=== PATIENT | female | born 1985 | race Caucasian/White ===

== ENCOUNTER 2019-02-18 03:15 | Emergency (ER) | payer MEDICAID ==
[~2019-02-18] VITALS: Ht 167.6 cm; Wt 80.7 kg
[~2019-02-18 03:15] MED LIST: FLUO-125; METF-371
[2019-02-18] MEDS ORDERED: ACETAMINOPHEN 325 MG TAB PO ONE (03:45)
[2019-02-18 03:50] VITALS: BP 128/78
[2019-02-18 04:36] LABS: Urine Bacteria MOD /hpf (None Seen); Urine Blood Negative /uL (Negative); Urine Specific Gravity 1.022 (1.001-1.035); Urine WBC 89 /hpf (0 - 5)
[2019-02-18] MEDS ORDERED: IBUPROFEN 800 MG TAB PO ONE (05:00)
[2019-02-18] MEDS ORDERED: cefTRIAXone SOD 1,000 MG VL IM ONE (05:15)
== END 2019-02-18 06:45 | disposition home or self-care (01) ==
LOC: ER 03:18
DX: N39.0 Urinary tract infection, site not specified (principal); R50.9 Fever, unspecified; E11.9 Type 2 diabetes mellitus without complications; Z98.51 Tubal ligation status
CPT/HCPCS: 81001; 81025; 82962; 96372; 99283; J0696

== ENCOUNTER 2019-03-17 10:34 | Emergency (ER) | payer MEDICAID ==
[~2019-03-17] VITALS: Ht 167.6 cm; Wt 77.1 kg
[2019-03-17] MEDS ORDERED: HYDROcodone-ACET 10/325MG TAB PO ONE (11:00)
[2019-03-17 13:23] LABS: Urine Bacteria NONE SEEN /hpf (None Seen); Urine Blood Negative /uL (Negative); Urine Mucus FEW (None Seen); Urine Specific Gravity 1.026 (1.001-1.035); Urine WBC 52 /hpf (0 - 5); Urine WBC Clumps PRESENT /hpf (None Seen)
[2019-03-17 14:30] VITALS: BP 100/56
== END 2019-03-17 15:19 | disposition home or self-care (01) ==
LOC: ER 10:39
DX: M79.662 Pain in left lower leg (principal); N39.0 Urinary tract infection, site not specified; E11.9 Type 2 diabetes mellitus without complications; F17.210 Nicotine dependence, cigarettes, uncomplicated; Z79.84 Long term (current) use of oral hypoglycemic drugs; Z79.899 Other long term (current) drug therapy; Z98.51 Tubal ligation status
CPT/HCPCS: 81001; 82962; 93971

== ENCOUNTER 2023-01-11 14:26 | Emergency (ER) | payer MEDICAID ==
[~2023-01-11] VITALS: Ht 167.6 cm; Wt 85.0 kg
[2023-01-11] MEDS ORDERED: INSULIN LISPRO (HUMAN) 100 UNITS/ML ML SC ONE ×2 (15:00→16:15)
[2023-01-11 15:57] LABS: Basophils # (auto) 0.1 10 ^3/uL (0-0.2); Basophils % (auto) 0.7 % (0.0-2.0); Eosinophils # (auto) 0.2 10 ^3/uL (0-0.8); Eosinophils % (auto) 1.8 % (0.0-7.0); Hematocrit 38.8 % (36.0-46.0); Hemoglobin 13.2 g/dL (12.2-16.2); Lymphocytes # (auto) 2.3 10 ^3/uL (0.4-5.4); Lymphocytes % (auto) 25.8 % (10.0-50.0); Mean Corpuscular Hemoglobin 30.4 pg (28.0-32.0); Mean Corpuscular Hgb Conc. 34.1 g/dL (32.0-36.0); Mean Corpuscular Volume 89.1 fL (80.0-100.0); Monocytes # (auto) 0.4 10 ^3/uL (0-1.3); Monocytes % (auto) 4.1 % (0.0-12.0); Neutrophils # (auto) 5.9 10 ^3/uL (1.6-8.6); Neutrophils % (auto) 67.6 % (37.0-80.0); Nucleated Red Blood Cells % 0.1 %; Red Blood Cells 4.36 10^6/uL (4.0-5.20); Red Cell Distribution Width 13.1 % (11.8-14.3); White Blood Cell 8.8 10^3/uL (4.4-10.8)
[2023-01-11 16:02] LABS: Albumin 3.4 g/dL (3.4-5.0); BUN/Creatinine Ratio 10.9; Calcium 8.4 mg/dL (8.5-10.1); Potassium 4.3 mmol/L (3.5-5.1)
[2023-01-11 16:06] LABS: Bilirubin, Total 0.3 mg/dL (0.2-1.0); Total Protein 7.2 g/dL (6.4-8.2)
[2023-01-11 16:36] LABS: Urine Bacteria FEW /hpf (None Seen); Urine Blood Negative /uL (Negative); Urine Specific Gravity 1.034 (1.001-1.035); Urine WBC 12 /hpf (0 - 5)
[2023-01-11] MEDS ORDERED: BENZ100C19 PO (17:10)
[2023-01-11 18:24] VITALS: BP 97/64
== END 2023-01-11 18:25 | disposition home or self-care (01) ==
LOC: ER 14:26
DX: E11.65 Type 2 diabetes mellitus with hyperglycemia (principal); J06.9 Acute upper respiratory infection, unspecified; I95.9 Hypotension, unspecified; F17.210 Nicotine dependence, cigarettes, uncomplicated; I10 Essential (primary) hypertension; Z98.51 Tubal ligation status
CPT/HCPCS: 36415; 71046; 80053; 81001; 83880; 85025; 96372; 99284; J1815

== ENCOUNTER 2023-06-15 16:51 | Emergency (ER) | payer MEDICAID ==
[~2023-06-15] VITALS: Ht 167.6 cm; Wt 84.7 kg
[~2023-06-15 16:51] MED LIST changes: +BENZ100C19 PO
[2023-06-15] MEDS ORDERED: DexAMETHasone SOD PHOS 10MG/1ML VIAL INJ IM ONE (17:30)
[2023-06-15] MEDS ORDERED: HYDR-4924 PO (17:40)
[2023-06-15 18:18] VITALS: BP 97/64; PULSE 118; RESP 18; TEMP 97.8; O2SAT 96
== END 2023-06-15 18:33 | disposition home or self-care (01) ==
LOC: ER 16:51
DX: T78.40XA Allergy, unspecified, initial encounter (principal); F17.210 Nicotine dependence, cigarettes, uncomplicated; E11.9 Type 2 diabetes mellitus without complications; I10 Essential (primary) hypertension; Z98.51 Tubal ligation status; X58.XXXA Exposure to other specified factors, initial encounter
CPT/HCPCS: 96372; 99283; J1100

== ENCOUNTER 2023-11-11 08:02 | Inpatient (IN) | payer MEDICAID ==
[~2023-11-11] VITALS: Ht 167.6 cm; Wt 74.4 kg
[~2023-11-11 08:02] MED LIST changes: +HYDR-4924 PO
[2023-11-11] MEDS ORDERED: SODIUM CHLORIDE 0.9% 1,000 ML IV ONE (08:45)
[2023-11-11 09:14] LABS: Base Excess -13.2 mmol/L (-2.0-2.0)
[2023-11-11 09:17] LABS: Urine Bacteria None Seen /hpf (None Seen)
[2023-11-11 09:27] LABS: Basophils # (auto) 0.1 10 ^3/uL (0-0.2); Basophils % (auto) 0.6 % (0.0-2.0); Eosinophils # (auto) 0 10 ^3/uL (0-0.8); Eosinophils % (auto) 0.1 % (0.0-7.0); Hematocrit 44.4 % (36.0-46.0); Hemoglobin 14.1 g/dL (12.2-16.2); Lymphocytes # (auto) 1.1 10 ^3/uL (0.4-5.4); Lymphocytes % (auto) 9.1 % (10.0-50.0); Mean Corpuscular Hemoglobin 29.2 pg (28.0-32.0); Mean Corpuscular Hgb Conc. 31.8 g/dL (32.0-36.0); Monocytes # (auto) 0.1 10 ^3/uL (0-1.3); Monocytes % (auto) 0.9 % (0.0-12.0); Neutrophils # (auto) 10.3 10 ^3/uL (1.6-8.6); Neutrophils % (auto) 89.3 % (37.0-80.0); Nucleated Red Blood Cells % 0.1 %; Red Blood Cells 4.82 10^6/uL (4.0-5.20); Red Cell Distribution Width 13.6 % (11.8-14.3); White Blood Cell 11.5 10^3/uL (4.4-10.8)
[2023-11-11 09:31] LABS: Alanine Aminotransferase 25 U/L (7-40); Albumin 4.6 g/dL (3.2-4.8); Alkaline Phosphatase 128 U/L (46-116); Anion Gap 22 (5-15); Aspartate Aminotransferase 19 U/L (13-40); BUN/Creatinine Ratio 14.2 (10.0-20.0); Bilirubin, Total 0.5 mg/dL (0.2-1.0); Blood Urea Nitrogen 23 mg/dL (9-23); Calcium 9.9 mg/dL (8.7-10.4); Carbon Dioxide 15 mmol/L (20-30); Chloride 96 mmol/L (98-107); Potassium 5.1 mmol/L (3.5-5.1); Sodium 133 mmol/L (136-145); Total Protein 7.2 g/dL (5.7-8.2)
[2023-11-11 09:36] LABS: Glucose 672 mg/dL (74-106)
[2023-11-11] MEDS ORDERED: INSULIN LANTUS (GLARGINE) 1 /0.01ml (100units/ml) SC ONE (11:15)
[2023-11-11] MEDS ORDERED: ONDANSETRON HCL 4 MG/2 ML VIAL IV ONE (11:15)
[2023-11-11] MEDS ORDERED: POTASSIUM CHL 20MEQ/100ML 200 ML IV PRN (11:15)
[2023-11-11] MEDS ORDERED: INSULIN DRIP 100 UNIT/100ML 100 ML IV SCH ×3 (11:15→22:45)
[2023-11-11] MEDS ORDERED: DEXTROSE (50%) 50ML SYRG IV PRN (11:15)
[2023-11-11] MEDS ORDERED: MORPHINE SULFATE INJ 2 MG/ml SYRG IV PRN (11:30)
[2023-11-11] MEDS ORDERED: ACETAMINOPHEN 325 MG TAB PO PRN (11:30)
[2023-11-11] MEDS ORDERED: DOCUSATE SOD 100 MG CAP PO PRN (11:30)
[2023-11-11] MEDS ORDERED: NITROGLYCERIN 0.4 MG SL TAB SL PRN (11:30)
[2023-11-11 11:32] LABS: Magnesium 1.9 mg/dL (1.6-2.6)
[2023-11-11 11:34] LABS: Phosphorus 4.8 mg/dL (2.4-5.1)
[2023-11-11] MEDS ORDERED: LEVO-177 PO (11:35)
[2023-11-11] MEDS ORDERED: FLUO10TA18 PO (11:35)
[2023-11-11] MEDS ORDERED: LAMO100T44 PO (11:35)
[2023-11-11] MEDS ORDERED: MIDO5TAB22 PO (11:35)
[2023-11-11] MEDS ORDERED: FERR325T20 PO (11:35)
[2023-11-11] MEDS ORDERED: ATOR40TA52 PO (11:35)
[2023-11-11 11:55] LABS: Chloride 99 mmol/L (98-107); Potassium 4.9 mmol/L (3.5-5.1); Sodium 134 mmol/L (136-145)
[2023-11-11 11:56] LABS: Anion Gap 23 (5-15); Calcium 9.5 mg/dL (8.5-10.1); Carbon Dioxide 12 mmol/L (20-30)
[2023-11-11 12:01] LABS: BUN/Creatinine Ratio 10.5 (10.0-20.0); Blood Urea Nitrogen 18 mg/dL (9-23)
[2023-11-11 12:12] LABS: Glucose 656 mg/dL (74-106)
[2023-11-11 14:10] VITALS: PULSE 106; RESP 20; O2SAT 97
[2023-11-11] MEDS: SODIUM CHLORIDE 0.9% 1,000 ML IV SCH ×4 (14:22→23:54)
[2023-11-11] MEDS: ACCU-CHEK COMFORT CURVE STRIP VI SCH ×7 (14:23→22:34)
[2023-11-11] MEDS: MIDODRINE HCL 10 MG TAB PO SCH ×2 (14:46→22:12)
[2023-11-11 15:15] LABS: Urine Blood 3+ /uL (Negative); Urine Clarity CLEAR (Clear); Urine Color Pink (Yellow); Urine Protein, UAD 1+ (Negative); Urine Specific Gravity 1.022 (1.001-1.035); Urine Urobilinogen Normal (Negative); Urine pH 5.5 (5.0-8.0)
[2023-11-11] MEDS ORDERED: SODIUM CHLORIDE 0.9% 1,000 ML IV SCH (15:15)
[2023-11-11 15:16] LABS: Urine WBC 115 /hpf (0 - 5)
[2023-11-11] MEDS: FERROUS SULFATE 325mg EC TAB PO SCH (17:39)
[2023-11-11 17:50] LABS: Potassium 4.8 mmol/L (3.5-5.1); Sodium 142 mmol/L (136-145)
[2023-11-11 17:51] LABS: Anion Gap 18 (5-15); Calcium 8.5 mg/dL (8.5-10.1); Carbon Dioxide 13 mmol/L (20-30)
[2023-11-11 17:56] LABS: Blood Urea Nitrogen 21 mg/dL (9-23); Glucose 354 mg/dL (74-106)
[2023-11-11 18:22] LABS: Chloride 111 mmol/L (98-107)
[2023-11-11] MEDS ORDERED: PANTOPRAZOLE 40 MG/10 ML VIAL INJ IV ONE (19:15)
[2023-11-11 19:19] VITALS: PULSE 119; RESP 17; O2SAT 95
[2023-11-11] MEDS: HYDROcodone-ACET 5/325MG TAB PO PRN (22:15)
[2023-11-11] MEDS ORDERED: D5W/SOD CHL 0.45% 1,000 ML IV SCH (23:00)
[2023-11-11] MEDS: ONDANSETRON HCL 4 MG/2 ML VIAL IV PRN (23:17)
[2023-11-11 23:32] LABS: Chloride 113 mmol/L (98-107); Potassium 4.3 mmol/L (3.5-5.1); Sodium 144 mmol/L (136-145)
[2023-11-11 23:33] LABS: Calcium 8.3 mg/dL (8.7-10.4)
[2023-11-11 23:38] LABS: Blood Urea Nitrogen 15 mg/dL (9-23); Glucose 115 mg/dL (74-106)
[2023-11-11 23:39] LABS: Anion Gap 14 (5-15); Carbon Dioxide 17 mmol/L (20-30)
[2023-11-12] MEDS: ACCU-CHEK COMFORT CURVE STRIP VI SCH ×14 (00:04→22:28)
[2023-11-12] MEDS ORDERED: INSULIN LANTUS (GLARGINE) 1 /0.01ml (100units/ml) SC ONE ×2 (01:15→23:15)
[2023-11-12] MEDS: HYDROcodone-ACET 5/325MG TAB PO PRN ×2 (02:38→22:40)
[2023-11-12] MEDS ORDERED: DEXTROSE (50%) 50ML SYRG IV PRN ×2 (03:15→07:15)
[2023-11-12] MEDS: ONDANSETRON HCL 4 MG/2 ML VIAL IV PRN (05:18)
[2023-11-12] MEDS: MIDODRINE HCL 10 MG TAB PO SCH ×3 (06:02→22:39)
[2023-11-12] MEDS: SODIUM CHLORIDE 0.9% 1,000 ML IV SCH ×3 (06:04→20:33)
[2023-11-12] MEDS: LEVOTHYROXINE SODIUM 88 MCG TAB PO SCH (06:39)
[2023-11-12 06:48] LABS: Basophils # (auto) 0 10 ^3/uL (0-0.2); Basophils % (auto) 0.1 % (0.0-2.0); Eosinophils # (auto) 0 10 ^3/uL (0-0.8); Hemoglobin 12.3 g/dL (12.2-16.2); Lymphocytes # (auto) 1.2 10 ^3/uL (0.4-5.4); Lymphocytes % (auto) 6.8 % (10.0-50.0); Mean Corpuscular Hemoglobin 29.2 pg (28.0-32.0); Mean Corpuscular Hgb Conc. 32.3 g/dL (32.0-36.0); Mean Corpuscular Volume 90.3 fL (80.0-100.0); Monocytes # (auto) 0.5 10 ^3/uL (0-1.3); Monocytes % (auto) 2.9 % (0.0-12.0); Neutrophils # (auto) 15.9 10 ^3/uL (1.6-8.6); Neutrophils % (auto) 90.2 % (37.0-80.0); Red Blood Cells 4.21 10^6/uL (4.0-5.20); Red Cell Distribution Width 13.5 % (11.8-14.3); White Blood Cell 17.6 10^3/uL (4.4-10.8)
[2023-11-12 06:50] LABS: Alanine Aminotransferase 15 U/L (7-40); Albumin 3.8 g/dL (3.2-4.8); Alkaline Phosphatase 93 U/L (46-116); Anion Gap 18 (5-15); Aspartate Aminotransferase 10 U/L (13-40); Blood Urea Nitrogen 13 mg/dL (9-23); Calcium 8.2 mg/dL (8.7-10.4); Carbon Dioxide 14 mmol/L (20-30); Chloride 110 mmol/L (98-107); Glucose 240 mg/dL (74-106); Potassium 4.1 mmol/L (3.5-5.1); Sodium 142 mmol/L (136-145)
[2023-11-12 06:51] LABS: Bilirubin, Total 0.3 mg/dL (0.2-1.0); Total Protein 6.2 g/dL (5.7-8.2)
[2023-11-12] MEDS ORDERED: InsuLIN REG 1unit/0.01ml Soln (100units/ml) SC SCH ×2 (07:00→22:00)
[2023-11-12] MEDS ORDERED: ACCU-CHEK COMFORT CURVE STRIP VI SCH (07:00)
[2023-11-12] MEDS: INSULIN DRIP 100 UNIT/100ML 100 ML IV SCH ×2 (07:15→16:44)
[2023-11-12] MEDS: INSULIN LANTUS (GLARGINE) 1 /0.01ml (100units/ml) SC SCH ×2 (08:30→10:00)
[2023-11-12] MEDS ORDERED: INSULIN LANTUS (GLARGINE) 1 /0.01ml (100units/ml) SC SCH (10:00)
[2023-11-12] MEDS: cefTRIAXone 1GM/50ML D5W 50 ML IV SCH (10:04)
[2023-11-12] MEDS: FERROUS SULFATE 325mg EC TAB PO SCH ×2 (10:13→18:00)
[2023-11-12] MEDS: FLUoxetine HCL 10 MG CAP PO SCH (10:13)
[2023-11-12] MEDS: lamoTRIgine 100 MG TAB PO SCH (10:13)
[2023-11-12] MEDS: PANTOPRAZOLE 40 MG/10 ML VIAL INJ IV SCH (10:21)
[2023-11-12 19:00] VITALS: PULSE 107; RESP 17; TEMP 97.7; O2SAT 99
[2023-11-12] MEDS ORDERED: SODIUM CHLORIDE 0.9% 1,000 ML IV ONE (21:45)
[2023-11-12] MEDS ORDERED: ATORVASTATIN 20 MG TAB PO SCH (22:00)
[2023-11-12 22:05] LABS: Chloride 112 mmol/L (98-107); Potassium 3.4 mmol/L (3.5-5.1); Sodium 145 mmol/L (136-145)
[2023-11-12 22:06] LABS: Anion Gap 12 (5-15); Carbon Dioxide 21 mmol/L (20-30)
[2023-11-12 22:07] LABS: Calcium 8.8 mg/dL (8.7-10.4)
[2023-11-12 22:11] LABS: Glucose 162 mg/dL (74-106)
[2023-11-12 22:12] LABS: BUN/Creatinine Ratio 8.3 (10.0-20.0); Blood Urea Nitrogen 10 mg/dL (9-23)
[2023-11-12] MEDS: METOCLOPRAMIDE HCL 5MG/ml INJ 2ml VIAL IV PRN (22:40)
[2023-11-13] MEDS: ACCU-CHEK COMFORT CURVE STRIP VI SCH ×5 (00:26→12:00)
[2023-11-13] MEDS: SODIUM CHLORIDE 0.9% 1,000 ML IV SCH ×2 (03:41→10:04)
[2023-11-13] MEDS: InsuLIN REG 1unit/0.01ml Soln (100units/ml) SC SCH ×3 (04:20→12:00)
[2023-11-13] MEDS: METOCLOPRAMIDE HCL 5MG/ml INJ 2ml VIAL IV PRN (04:47)
[2023-11-13 05:54] LABS: Basophils # (auto) 0.1 10 ^3/uL (0-0.2); Basophils % (auto) 0.5 % (0.0-2.0); Eosinophils # (auto) 0 10 ^3/uL (0-0.8); Eosinophils % (auto) 0.1 % (0.0-7.0); Hematocrit 38.2 % (36.0-46.0); Hemoglobin 12.7 g/dL (12.2-16.2); Lymphocytes # (auto) 1.6 10 ^3/uL (0.4-5.4); Lymphocytes % (auto) 12.8 % (10.0-50.0); Mean Corpuscular Hemoglobin 29.7 pg (28.0-32.0); Mean Corpuscular Hgb Conc. 33.2 g/dL (32.0-36.0); Mean Corpuscular Volume 89.5 fL (80.0-100.0); Monocytes # (auto) 0.4 10 ^3/uL (0-1.3); Monocytes % (auto) 3.5 % (0.0-12.0); Neutrophils # (auto) 10.4 10 ^3/uL (1.6-8.6); Neutrophils % (auto) 83.1 % (37.0-80.0); Red Blood Cells 4.27 10^6/uL (4.0-5.20); Red Cell Distribution Width 13.9 % (11.8-14.3); White Blood Cell 12.5 10^3/uL (4.4-10.8)
[2023-11-13] MEDS: MIDODRINE HCL 10 MG TAB PO SCH (06:05)
[2023-11-13 06:08] LABS: Alanine Aminotransferase 15 U/L (7-40); Alkaline Phosphatase 95 U/L (46-116); Anion Gap 11 (5-15); BUN/Creatinine Ratio 6.6 (10.0-20.0); Blood Urea Nitrogen 8 mg/dL (9-23); Calcium 8.9 mg/dL (8.5-10.1); Carbon Dioxide 23 mmol/L (20-30); Chloride 113 mmol/L (98-107); Glucose 136 mg/dL (74-106); Potassium 3.3 mmol/L (3.5-5.1); Sodium 147 mmol/L (136-145)
[2023-11-13 06:09] LABS: Albumin 3.9 g/dL (3.2-4.8)
[2023-11-13 06:10] LABS: Aspartate Aminotransferase 13 U/L (13-40); Bilirubin, Total 0.3 mg/dL (0.2-1.0); Total Protein 6.4 g/dL (5.7-8.2)
[2023-11-13] MEDS: LEVOTHYROXINE SODIUM 88 MCG TAB PO SCH (07:19)
[2023-11-13 07:45] VITALS: PULSE 104; RESP 14; O2SAT 98
[2023-11-13] MEDS: FERROUS SULFATE 325mg EC TAB PO SCH (08:22)
[2023-11-13] MEDS: cefTRIAXone 1GM/50ML D5W 50 ML IV SCH (08:22)
[2023-11-13] MEDS ORDERED: MAGNESIUM SULFATE 1GM/100ML 100 ML IV ONE (09:15)
[2023-11-13] MEDS: POTASSIUM CHL 20MEQ/100ML 100 ML IV SCH ×2 (10:03→11:15)
[2023-11-13] MEDS: lamoTRIgine 100 MG TAB PO SCH (10:04)
[2023-11-13] MEDS: PANTOPRAZOLE 40 MG/10 ML VIAL INJ IV SCH (10:04)
[2023-11-13] MEDS: FLUoxetine HCL 10 MG CAP PO SCH (10:04)
[2023-11-13] MEDS: INSULIN LANTUS (GLARGINE) 1 /0.01ml (100units/ml) SC SCH (10:05)
[2023-11-13] MEDS ORDERED: INSLANTI SC (11:15)
[2023-11-13] MEDS ORDERED: INSU1INJ19 SC (11:21)
[2023-11-13] MEDS ORDERED: AMOX875T4 PO (11:28)
[2023-11-13] MEDS ORDERED: INSREGI SC (11:35)
[2023-11-13 11:39] VITALS: BP 123/78; PULSE 98; RESP 18; O2SAT 98
== END 2023-11-13 12:16 | disposition home or self-care (01) | DRG 720 ==
LOC: ER 08:02 → TELE 11:35 → UNDODEPER 11-13 11:53 → TELE 11-13 12:16
PROVIDERS: ADMIT Internal Medicine; ATTEND Emergency Medicine
DX: A41.9 Sepsis, unspecified organism (principal); N17.0 Acute kidney failure with tubular necrosis; E11.10 Type 2 diabetes mellitus with ketoacidosis without coma; I95.89 Other hypotension; E87.1 Hypo-osmolality and hyponatremia; D50.9 Iron deficiency anemia, unspecified; F17.210 Nicotine dependence, cigarettes, uncomplicated; D72.829 Elevated white blood cell count, unspecified; E78.5 Hyperlipidemia, unspecified; E86.0 Dehydration; E03.9 Hypothyroidism, unspecified; N39.0 Urinary tract infection, site not specified; F31.9 Bipolar disorder, unspecified; I10 Essential (primary) hypertension; Z79.899 Other long term (current) drug therapy
CPT/HCPCS: 36415; 36600; 71045; 76775; 80048; 80053; 81001; 82010; 82306; 82607; 82805; 82962; 83036; 83605; 83690; 83735; 83930; 83970; 84100; 84439; 84443; 84484; 84702; 85025; 87040; 87086; 87088; 87186; 96360; 99291; C9113; G0378; J1815; J2405; J3480

== ENCOUNTER 2025-01-14 10:08 | Emergency (ER) | payer MEDICAID ==
[~2025-01-14] VITALS: Ht 167.6 cm; Wt 68.0 kg
[~2025-01-14 10:08] MED LIST changes: +AMOX875T4 PO; +ATOR40TA52 PO; +FERR325T20 PO; +FLUO10TA18 PO; +INSREGI SC; +INSU1INJ19 SC; +LAMO100T44 PO; +LEVO-177 PO; +MIDO5TAB22 PO
--- NOTE | 2025-01-14 10:32 | ED.PDOC ---
History of Present Illness HPI Comments 39-year-old female who comes in with chief complaint of shortness a breath as well as cough and congestion. The patient states that the symptoms started a few days ago. The symptoms then worsened yesterday and she is also having some tingling of her skin. She denies any syncope or near-syncope. The patient denies any nausea, vomiting or diarrhea. She went to see her doctor today and upon arrival, the patient's systolic pressure was 70. An Accu-Chek EN route was 234. 911 was called and the patient was transported to our facility. The patient was given 500 cc of normal saline and the patient's blood pressure normalized. Upon arrival, the patient was sitting up and in no significant distress. She denies any others who are ill at the home. Time Seen by MD: 10:11 Primary Care Provider: UNKNOWN Reviewed Notes: Nurses Notes, Telecommunications Linesworker Notes, Medications, Allergies (No a llergies to medications) Allergies: Coded Allergies: NO KNOWN ALLERGIES (Unverified , 04/15/13) Home Meds Active Scripts Ciprofloxacin Hcl (Cipro) 500 Mg Tab, 1 TAB PO BID, #14 TAB Prov:ISAAC BAILEY MD 01/14/25 Insulin Regular (Human) (Novolin R) 100 Unit/Ml Inj, 100 UNITS SC IQ4HR for 30 Days, #1 INJ Prov:CHASE MALDONADO RESIDENT 11/13/23 Amoxicillin & Pot Clavulanate (Amoxicillin/Potassium Cla) 875 Mg Tab, 1 TAB PO BID for 7 Days, #14 TAB Prov:CHASE MALDONADO RESIDENT 11/13/23 Insulin Glargine (Basaglar Kwikpen) 100 Unit/Ml Inj, 40 UNIT SC HS for 30 Days, #1 INJ Prov:CHASE MALDONADO RESIDENT 11/13/23 Hydroxyzine HCl (Hydroxyzine Hydrochloride) 25 Mg Tab, 25 MG PO Q8HP PRN, #15 TAB Prov:RAKESH SÁNCHEZ PAC 06/15/23 Benzonatate (Tessalon Perles) 100 Mg Cap, 1 CAP PO TID, #21 CAP Prov:RAKESH SÁNCHEZ PAC 01/11/23 Reported Medications Ferrous Sulfate (Ferosul) 325 Mg Tab, PO 11/11/23 Midodrine HCl (Midodrine Hydrochloride) 5 Mg Tab, 1 TAB PO TID 11/11/23 Atorvastatin Calcium (ATORVASTATIN CALCIUM) 40 Mg Tab, 1 TAB PO DAILY 11/11/23 Lamotrigine (Lamotrigine) 100 Mg Tab, 1 TAB PO DAILY 11/11/23 Fluoxetine Hcl (Fluoxetine Hcl) 10 Mg Tab, 1 CAP PO DAILY 11/11/23 Levothyroxine Sodium (Levothyroxine Sodium) 88 Mcg Tab, 1 TAB PO DAILY 11/11/23 Metformin Hydrochloride (Metformin Hcl) 850 Mg Tab 04/15/13 Fluoxetine Hcl (Fluoxetine Hcl) 20 Mg Cap 04/15/13 Information Source: Patient, Emergency Med Personnel Mode of Arrival: EMS Severity: Moderate Timing: Days Duration: Since onset Prehospital treatment: Accucheck (234), 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, IVF, Other (Normal saline 500 cc bolus) Associated signs and symptoms No associated nausea, vomiting or diarrhea Past Medical History PAST MEDICAL HISTORY: Anemia, DM, High Lipids, HTN, Thyroid Past Medical History (Other): Low blood pressure, bipolar disorder Surgical History: BTL, NURSING DEPARTMENT CHAIRPERSON History: No Pertinent NURSING DEPARTMENT CHAIRPERSON History Family History Family History: Family hx of DM Social History Smoker: Cigarettes Alcohol: Occasionally Drugs: Denies Drug Use Lives In: Home Constitutional: reports: weakness; denies: chills, diaphoresis, fatigue, fever, malaise, sweats, others EENTM: reports: others (Congestion); denies: blurred vision, double vision, ear bleeding, ear discharge, ear drainage, ear pain, ear ringing, eye pain, eye redness, hearing loss, mouth pain, mouth swelling, nasal discharge, nose bleeding, nose congestion, nose pain, photophobia, tearing, throat pain, throat swelling, voice changes Respiratory: denies: cough, hemoptysis, orthopnea, SOB at rest, shortness of breath, SOB with excertion, stridor, wheezing, others Cardiovascular: denies: chest pain, dizzy spells, diaphoresis, Dyspnea on exertion, edema, irregular heart beat, left arm pain, lightheadedness, palpita tions, PND, syncope, others Gastrointestinal: denies: abdomen distended, abdominal pain, blood streaked victoria wels, constipated, diarrhea, dysphagia, difficulty swallowing, hematemesis, melena, nausea, poor appetite, poor fluid intake, rectal bleeding, rectal pain, vomiting, others Genitourinary: denies: abnormal vagina bleeding, burning, dyspareunia, dysuria, flank pain, frequency, hematuria, incontinence, pain, , vagina discharge, urgency, others Neurological: denies: dizziness, fainting, headache, left sided numbness, left sided weakness, numbness, paresthesia, pre-existing deficit, right sided numbness, right sided weakness, seizure, speech problems, tingling, tremors, weakness, others Musculoskeletal: denies: back pain, gout, joint pain, joint swelling, muscle pain, muscle stiffness, neck pain, others Integumetry: denies: bruises, change in color, change in hair/nails, dryness, laceration, lesions, lumps, rash, wounds, others Allergic/Immunocompromised: denies: Difficulty Healing, Frequent Infections, Hives, Itching, others Hematologic/Lymphatic: denies: anemia, blood clots, easy bleeding, easy bruis ing, swollen glands, others Endocrine: denies: excessive hunger, excessive sweating, excessive thirst, exc essive urination, flushing, intolerance to cold, intolerance to heat, unexplained weight gain, unexplained weight loss, others Psychiatric: denies: anxiety, bipolar disorder, depression, hopeless, panic disorder, schizophrenia, sleepless, suicidal, others Physical Exam General Appearance: No Apparent Distress HEENT: Normal ENT Inspection, Pharynx Normal, TMs Normal Neck: Full Range of Motion, Non-Tender, Normal, Normal Inspection Respiratory: Chest Non-Tender, Lungs Clear, No Accessory Muscle Use, No Respiratory Distress, Normal Breath Sounds Cardiovascular: No Edema, No JVD, No Murmur, No Gallop, Normal Peripheral P ulses, Regular Rate/Rhythm Breast Exam: Deferred Gastrointestinal: No Organomegaly, Non Tender, No Pulsatile Mass, Normal Bowel Sounds, Soft Genitalia: Deferred Pelvic: Deferred Rectal: Deferred Extremities: No calf tenderness, Normal capillary refill, Normal inspection, Normal range of motion, Non-tender, No pedal edema Musculoskeletal : Apperance: Normal Neurologic: Alert, 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 Was a procedure done?: No Differential Dx Considerations may include: Generalized weakness, influenza, COVID, dehydration, diabetes X-Ray, Labs, Meds, VS Vital Signs Date Time Temp Pulse Resp B/P (MAP) Pulse Ox O2 Delivery O2 Flow Rate FiO2 01/14/25 11:25 98.1 79 12 127/75 (92) 98 98.1 01/14/25 10:50 20 88/41 (57) 01/14/25 10:40 86 20 94 Room Air* 0 21 01/14/25 10:39 98.9 86 20 89/53 (65) 94 98.9 01/14/25 10:35 98.4 83 14 128/84 (99) 97 Lab Test 01/14/25 10:52 01/14/25 10:38 Range/Units Urine Color Light-orange Yellow Urine Clarity Ex.turbid Clear Urine pH 5.5 5.0-9.0 Urine Specific [place] 1.014 1.001-1.035 Urine Protein 1+ H Negative Urine Ketones Negative Negative Urine Blood 1+ H Negative /uL Urine Nitrite Negative Negative Urine Bilirubin Negative Negative Urine Urobilinogen Normal Negative mg/dL Urine Leukocyte Esterase 3+ Negative /uL Urine RBC 19 0 - 4 /hpf Urine WBC Clumps Present None Seen /hpf Urine Microscopic WBC 799 H 0-5 /HPF Urine Squamous Epithelial Cells Mod <5 /hpf Urine Bacteria Mod H None Seen /hpf Urine Hyaline Casts Mod 0 - 2 /lpf Urine Mucus Moderate None Seen Urine Yeast (Budding) Few None Seen /hpf Urine Glucose 4+ H Normal mg/dL White Blood Count 8.0 4.4-10.8 10^3/uL Red Blood Count 4.43 4.0-5.20 10^6/uL Hemoglobin 13.0 12.2-16.2 g/dL Hematocrit 38.9 36.0-46.0 % Mean Corpuscular Volume 87.9 80.0-100.0 fL Mean Corpuscular Hemoglobin 29.4 28.0-32.0 pg Mean Corpuscular Hemoglobin Concent 33.5 32.0-36.0 g/dL Red Cell Distribution Width 13.2 11.8-14.3 % Platelet Count 320 140-450 10^3/uL Mean Platelet Volume 9.4 6.9-10.8 fL Neutrophils (%) (Auto) 76.3 37.0-80.0 % Lymphocytes (%) (Auto) 16.1 10.0-50.0 % Monocytes (%) (Auto) 6.7 0.0-12.0 % Eosinophils (%) (Auto) 0.2 0.0-7.0 % Basophils (%) (Auto) 0.7 0.0-2.0 % Neutrophils # (Auto) 6.1 1.6-8.6 10 ^3/uL Lymphocytes # (Auto) 1.3 0.4-5.4 10 ^3/uL Monocytes # (Auto) 0.5 0-1.3 10 ^3/uL Eosinophils # (Auto) 0 0-0.8 10 ^3/uL Basophils # (Auto) 0.1 0-0.2 10 ^3/uL Nucleated Red Blood Cells 0.0 % Sodium Level 137 136-145 mmol/L Potassium Level 3.7 3.5-5.1 mmol/L Chloride Level 101 98-107 mmol/L Carbon Dioxide Level 30 20-31 mmol/L Anion Gap 6 5-15 Blood Urea Nitrogen 19 9-23 mg/dL Creatinine 1.37 H 0.550-1.02 mg/dL Glomerular Filtration Rate Calc 50 >90 mL/min BUN/Creatinine Ratio 13.9 10.0-20.0 Serum Glucose 259 H 74-106 mg/dL Calcium Level 9.0 8.7-10.4 mg/dL Influenza Type A Antigen Positive Negative Influenza Type B Antigen Negative Negative SARS-CoV-2 Antigen (Rapid) Negative NEGATIVE Current Medications Medications (Trade) Dose Ordered Sig/George Route Start Time Stop Time Status Last Admin Sodium Chloride 1,000 ml @ 1,000 mls/hr Q1H ONCE IV 01/14/25 11:00 01/14/25 11:59 DC 01/14/25 10:50 Ceftriaxone Sodium 50 ml @ 100 mls/hr ONCE ONCE IV 01/14/25 11:45 01/14/25 12:14 01/14/25 11:54 IV Hep-Lock was established The patient was given a 1 L bolus of normal saline The influenza a is positive The urine test is positive for UTI The chemistry panel is within normal limits The CBC is within normal limits The influenza B is negative The COVID test is negative The patient was given Rocephin 1 g IV piggyback At this time, the patient's vital signs are within normal limits The chest x-ray was negative The patient was being discharged and will follow up with the primary care doctor The patient will return to the emergency department's the condition worsens The patient was given a prescription of Cipro. Images Reviewed?: Images reviewed and evaluated by me Time of 1ST Reevaluation: 10:32 Reevaluation 1ST: Improved Time of 2ND Reevaluation: 12:06 Reevaluation 2ND: Improved Patient Education/Counseling: Diagnosis, Treatment, Prognosis, Need For Follow Up Family Education/Counseling: No Family Present Departure 1 Departure Time of Disposition: 12:06 Impression: Primary Impression: UTI (urinary tract infection) Qualified Codes: N30.01 - Acute cystitis with hematuria Additional Impression: Influenza A Disposition: HOME / SELF CARE / HOMELESS Condition: Fair e-Prescriptions Ciprofloxacin Hcl (Cipro) 500 Mg Tab 1 TAB PO BID, #14 TAB Prov: ISAAC BAILEY MD 01/14/25 Discharged With: Self Critical Care Note Critical Care Time?: No Stability Stability form required: No Heart Score Heart Score: Heart Score Response (Comments) Value History N/A 0 EKG N/A 0 Age N/A 0 Risk Factors N/A 0 Troponin N/A 0 Total 0 ISAAC BAILEY MD Jan 14, 2025 10:32
[2025-01-14 10:40] VITALS: PULSE 86; RESP 20; O2SAT 94
[2025-01-14] MEDS: SODIUM CHLORIDE 0.9% 1,000 ML IV ONE (10:50)
[2025-01-14 10:59] LABS: Basophils # (auto) 0.1 10 ^3/uL (0-0.2); Basophils % (auto) 0.7 % (0.0-2.0); Eosinophils # (auto) 0 10 ^3/uL (0-0.8); Eosinophils % (auto) 0.2 % (0.0-7.0); Hematocrit 38.9 % (36.0-46.0); Lymphocytes # (auto) 1.3 10 ^3/uL (0.4-5.4); Lymphocytes % (auto) 16.1 % (10.0-50.0); Mean Corpuscular Hemoglobin 29.4 pg (28.0-32.0); Mean Corpuscular Hgb Conc. 33.5 g/dL (32.0-36.0); Mean Corpuscular Volume 87.9 fL (80.0-100.0); Monocytes # (auto) 0.5 10 ^3/uL (0-1.3); Monocytes % (auto) 6.7 % (0.0-12.0); Neutrophils # (auto) 6.1 10 ^3/uL (1.6-8.6); Neutrophils % (auto) 76.3 % (37.0-80.0); Platelet Count (auto) 320 10^3/uL (140-450); Red Blood Cells 4.43 10^6/uL (4.0-5.20); Red Cell Distribution Width 13.2 % (11.8-14.3)
[2025-01-14 11:07] LABS: Chloride 101 mmol/L (98-107); Potassium 3.7 mmol/L (3.5-5.1); Sodium 137 mmol/L (136-145)
[2025-01-14 11:08] LABS: Anion Gap 6 (5-15); Carbon Dioxide 30 mmol/L (20-31)
[2025-01-14 11:14] LABS: BUN/Creatinine Ratio 13.9 (10.0-20.0); Blood Urea Nitrogen 19 mg/dL (9-23)
[2025-01-14 11:19] LABS: COVID19 ANTIGEN SOFIA FIA NEGATIVE (NEGATIVE)
[2025-01-14 11:22] LABS: Rapid Influenza A Positive (Negative); Rapid Influenza B Negative (Negative)
[2025-01-14 11:24] LABS: Urine Bacteria MOD /hpf (None Seen); Urine Blood 1+ /uL (Negative); Urine Budding Yeast FEW /hpf (None Seen); Urine Clarity Ex.Turbid (Clear); Urine Color Light-Orange (Yellow); Urine Hyaline Cast MOD /lpf (0 - 2); Urine Mucus MODERATE (None Seen); Urine Protein, UAD 1+ (Negative); Urine Specific Gravity 1.014 (1.001-1.035); Urine Squamous Epithelial Cell MOD /hpf (<5); Urine Urobilinogen Normal (Negative); Urine WBC 799 /HPF (0-5); Urine WBC Clumps PRESENT /hpf (None Seen); Urine pH 5.5 (5.0-9.0)
[2025-01-14 11:25] VITALS: TEMP 98.1
[2025-01-14 11:30] LABS: Glucose 259 mg/dL (74-106)
[2025-01-14] MEDS ORDERED: CIPR-173 PO (11:32)
[2025-01-14] MEDS: cefTRIAXone 1GM/50ML D5W 50 ML IV ONE (11:54)
--- NOTE | 2025-01-14 12:00 | DVH ---
EXAM: XY CHEST PORTABLE Indication: sob Technique: Single frontal view of the chest was obtained Comparison: XY CHEST PORTABLE on DOS: 11/11/23 FINDINGS: Lines and Tubes: None Lungs: No focal consolidation. Pleura: No effusion. No pneumothorax. Cardiomediastinal contours: Unremarkable Bones: No acute osseous abnormality. IMPRESSION: No acute cardiopulmonary disease.
[2025-01-14 12:18] VITALS: BP 119/83; PULSE 77; RESP 12; O2SAT 99
== END 2025-01-14 12:30 | disposition home or self-care (01) ==
LOC: EDUNIT# 10:08 → EDBD 10:08 → ER 10:08
DX: J10.1 Influenza due to other identified influenza virus with other respiratory manifestations (principal); N39.0 Urinary tract infection, site not specified; E11.9 Type 2 diabetes mellitus without complications; I10 Essential (primary) hypertension; E78.5 Hyperlipidemia, unspecified; J45.909 Unspecified asthma, uncomplicated; F17.210 Nicotine dependence, cigarettes, uncomplicated; Z79.890 Hormone replacement therapy; Z79.899 Other long term (current) drug therapy; Z98.51 Tubal ligation status; Z20.822 Contact with and (suspected) exposure to COVID-19
CPT/HCPCS: 36415; 71045; 80048; 81001; 85025; 87426; 87804; 96361; 96365; 99284; J0696; J7030

== ENCOUNTER 2025-05-01 11:02 | Inpatient (IN) | payer MEDICAID ==
[~2025-05-01] VITALS: Ht 167.6 cm; Wt 81.9 kg
[~2025-05-01 11:02] MED LIST changes: +CIPR-173 PO
--- NOTE | 2025-05-01 11:19 | ED.PDOC ---
GI ASSESSMENT HPI Comments Alex HPI: Poor Historian. Past Medical History: Past Surgical History: 40y F who presents to the ED for chief complaint of nausea and vomiting. - pt states she had gone out with friends, on Sunday, 2 days prior for her birthday and states she had multiple drinks - pt states the following morning, she started to have nausea, vomiting, dizziness, lightheadedness and pressure in her head - pt states her vomiting was" all day and it started out red and turned clear" - pt states her diarrhea was brown in color throughout - pt has noted history of low blood pressure and states she takes unknown medication and in the ED, has noted stable vitals with noted BP of 95/66 in the ED with otherwise all other vitals in normal range - pt has history of DM with noted accu check of 254 in the ED - pt otherwise denies any other symptoms at this time Past Medical history: DM, hypotension, hyperthyroidism Past surgical history: 1x allergies: denies medications: insulin social history: denies tobacco use, endorses ETOH use, denies drug use REVIEW OF SYSTEMS: CONSTITUTIONAL: Denies acute: fever, diaphoresis, chills, HEAD: Denies acute: headache, photophobia Eyes: Denies acute: Double vision, vision loss, eye pain, eye discharge. EARS: Denies acute: tinnitus, hearing loss, ear discharge, ear pain, THROAT: Denies acute: sore throat, swelling, difficulty swallowing , pain with swallowing, change in voice. NECK: Denies acute: neck pain, neck swelling, stiff neck. HEART: Denies acute : chest pain, palpitations, LUNGS: Denies acute: SOB, wheezing, cough, hemoptysis ABDOMEN: Denies acute: abdominal pain, diarrhea, melena , hematemesis, hematochezia SKIN: Denies acute: rash, redness, lesions, itchiness. EXTREMITIES: Denies acute: calf pain, numbness, tingling, weakness, denies pain in extremity. Denies acute: Low back pain. Neuro: Denies acute: focal neurological deficit, motor or sensory focal neurological deficit, tremors, seizure like activity, confusion, , change in mental status, loss of bowel or bladder function, cauda equina like symptoms. : Denies acute: dysuria, hematuria, flank pain, increase in urinary frequency. PSYCH: Denies acute: hallucination, suicidal ideation, homicidal ideation. FEMALE: Denies acute: abnormal vaginal bleeding, foul odor, unusual discharge. PHYSICAL EXAM: General: ----mild----acute distress, awake and alert. Head: normocephalic, atraumatic. Neck: supple, trachea is midline, no swelling. Throat: Normal phonation. Eyes:, no erythema, no purulent discharge, no proptosis, no icterus. Heart: regular rate, regular rhythm, no significant murmur appreciated. Lungs: no apparent respiratory distress, Able to speak in full sentences. No wheezing, no rhonchi, no crackles. No stridors Clear to auscultation bilaterally. Abdomen: non tender to palpation, non distended, soft, no guarding, no rebound, + bowel sounds. Neuro: Awake, Alert, oriented to name, self, situation, follows commands GCS=15. Speech is normal. Skin: no petechia, no purpura, no cyanosis, non-pale, not jaundice. Lower extremities: --no - Pitting edema no deformity, no focal swelling, no calf TTP. Makes eye contact. moves all four extremities. Face: no apparent facial droop. Ambulating in the ED independently. No nuchal rigidity, Kernig's sign, Brudzinski's sign, no meningeal signs. ED COURSE: DISCLAIMER: This medical document was created using an electronic medical record system with voice recognition software and computerized dictation system. Although this document has been carefully reviewed, there might still be some phonetic and typographical errors. Occasional wrong-word or "sound-alike" substitutions may have occurred due to the inherent limitations of voice recognition software. These areas are purely typographical due to imperfections of the software programs and do not reflect any compromise in the patient's medical care. Please read the chart carefully and recognize, using context, where these substitutions have occurred. Time Seen by MD: 11:17 Primary Care Provider: UNKNOWN Reviewed Notes: Medications, Allergies Allergies: Coded Allergies: NO KNOWN ALLERGIES (Unverified , 04/15/13) Home Meds Active Scripts Nitrofurantoin Monohydrate Mac (Macrobid) 100 Mg Cap, 100 MG PO BID for 7 Days, #14 CAP Prov:YENNY SALEEM DO 05/01/25 Ciprofloxacin Hcl (Cipro) 500 Mg Tab, 1 TAB PO BID, #14 TAB Prov:ISAAC BAILEY MD 01/14/25 Insulin Regular (Human) (Novolin R) 100 Unit/Ml Inj, 100 UNITS SC IQ4HR for 30 Days, #1 INJ Prov:JOELCHASE RESIDENT 11/13/23 Amoxicillin & Pot Clavulanate (Amoxicillin/Potassium Cla) 875 Mg Tab, 1 TAB PO BID for 7 Days, #14 TAB Prov[facility] 11/13/23 Insulin Glargine (Basaglar Kwikpen) 100 Unit/Ml Inj, 40 UNIT SC HS for 30 Days, #1 INJ Prov[facility] 11/13/23 Hydroxyzine HCl (Hydroxyzine Hydrochloride) 25 Mg Tab, 25 MG PO Q8HP PRN, #15 TAB Prov:RAKESH SÁNCHEZ PAC 06/15/23 Benzonatate (Tessalon Perles) 100 Mg Cap, 1 CAP PO TID, #21 CAP Prov:RAKESH SÁNCHEZ PAC 01/11/23 Reported Medications Ferrous Sulfate (Ferosul) 325 Mg Tab, PO 11/11/23 Midodrine HCl (Midodrine Hydrochloride) 5 Mg Tab, 1 TAB PO TID 11/11/23 Atorvastatin Calcium (ATORVASTATIN CALCIUM) 40 Mg Tab, 1 TAB PO DAILY 11/11/23 Lamotrigine (Lamotrigine) 100 Mg Tab, 1 TAB PO DAILY 11/11/23 Fluoxetine Hcl (Fluoxetine Hcl) 10 Mg Tab, 1 CAP PO DAILY 11/11/23 Levothyroxine Sodium (Levothyroxine Sodium) 88 Mcg Tab, 1 TAB PO DAILY 11/11/23 Metformin Hydrochloride (Metformin Hcl) 850 Mg Tab 04/15/13 Fluoxetine Hcl (Fluoxetine Hcl) 20 Mg Cap 04/15/13 Information Source: Patient Mode of Arrival: Ambulatory Past Medical History PAST MEDICAL HISTORY: Anemia, DM, High Lipids, HTN, Thyroid Surgical History: BTL, AIRPORT MANAGER History: No Pertinent AIRPORT MANAGER History Family History Family History: Family hx of DM Social History Smoker: Cigarettes Alcohol: Occasionally Drugs: Denies Drug Use Lives In: Home Was a procedure done? Was a procedure done?: No X-Ray, Labs, Meds, VS Vital Signs Date Time Temp Pulse Resp B/P (MAP) Pulse Ox O2 Delivery O2 Flow Rate FiO2 05/01/25 15:27 98.1 90 14 92/64 (73) 97 98.1 05/01/25 13:11 92 16 115/76 (89) 95 05/01/25 12:32 97 19 95 Room Air 05/01/25 12:32 98.6 97 19 98/70 (79) 95 98.6 05/01/25 11:21 91 05/01/25 11:18 97.9 98 17 95/66 (76) 97 97.9 Lab Test 05/01/25 12:52 05/01/25 11:26 05/01/25 11:15 05/01/25 11:11 Range/Units Troponin I High Sensitivity < 3 L < 3 L </=34 ng/L White Blood Count 7.0 4.4-10.8 10^3/uL Red Blood Count 4.29 4.0-5.20 10^6/uL Hemoglobin 12.9 12.2-16.2 g/dL Hematocrit 38.2 36.0-46.0 % Mean Corpuscular Volume 89.0 80.0-100.0 fL Mean Corpuscular Hemoglobin 30.1 28.0-32.0 pg Mean Corpuscular Hemoglobin Concent 33.8 32.0-36.0 g/dL Red Cell Distribution Width 13.4 11.8-14.3 % Platelet Count 366 140-450 10^3/uL Mean Platelet Volume 8.8 6.9-10.8 fL Neutrophils (%) (Auto) 69.8 37.0-80.0 % Lymphocytes (%) (Auto) 24.4 10.0-50.0 % Monocytes (%) (Auto) 4.3 0.0-12.0 % Eosinophils (%) (Auto) 0.5 0.0-7.0 % Basophils (%) (Auto) 1.0 0.0-2.0 % Neutrophils # (Auto) 4.9 1.6-8.6 10 ^3/uL Lymphocytes # (Auto) 1.7 0.4-5.4 10 ^3/uL Monocytes # (Auto) 0.3 0-1.3 10 ^3/uL Eosinophils # (Auto) 0 0-0.8 10 ^3/uL Basophils # (Auto) 0.1 0-0.2 10 ^3/uL Nucleated Red Blood Cells 0.1 % Sodium Level 139 136-145 mmol/L Potassium Level 4.2 3.5-5.1 mmol/L Chloride Level 99 98-107 mmol/L Carbon Dioxide Level 30 20-31 mmol/L Anion Gap 10 5-15 Blood Urea Nitrogen 21 9-23 mg/dL Creatinine 1.16 H 0.550-1.02 mg/dL Glomerular Filtration Rate Calc 60 >90 mL/min BUN/Creatinine Ratio 18.1 10.0-20.0 Serum Glucose 305 H 74-106 mg/dL Lactic Acid Level 1.3 0.4-2.0 mmol/L Calcium Level 10.1 8.7-10.4 mg/dL Magnesium Level 1.9 1.6-2.6 mg/dL Total Bilirubin 0.5 0.2-1.0 mg/dL Aspartate Amino Transferase (AST) 15 <34 U/L Alanine Aminotransferase (ALT) 19 7-40 U/L Alkaline Phosphatase 99 46-116 U/L Total Protein 7.0 5.7-8.2 g/dL Albumin 4.3 3.2-4.8 g/dL Plasma/Serum Blood Alcohol 4.3 <10 mg/dL Urine Color Light-orange Yellow Urine Clarity Turbid H Clear Urine pH 5.0 5.0-9.0 Urine Specific [place] 1.027 1.001-1.035 Urine Protein Trace H Negative Urine Ketones 2+ H Negative Urine Blood 1+ H Negative /uL Urine Nitrite 2+ H Negative Urine Bilirubin Negative Negative Urine Urobilinogen Normal Negative mg/dL Urine Leukocyte Esterase 3+ Negative /uL Urine RBC 9 0 - 4 /hpf Urine Microscopic WBC 198 H 0-5 /HPF Urine Squamous Epithelial Cells Mod <5 /hpf Urine Bacteria Many H None Seen /hpf Urine Mucus Few None Seen Urine Glucose 4+ H Normal mg/dL Urine Opiates Screen Neg NEGATIVE Urine Fentanyl Screen Neg NEGATIVE Urine Barbiturates Screen Neg NEGATIVE Urine Phencyclidine Screen Neg NEGATIVE Urine Amphetamines Screen Neg NEGATIVE Urine Benzodiazepines Screen Neg NEGATIVE Urine Cocaine Screen Neg NEGATIVE Urine Cannabinoids Screen Neg NEGATIVE POC Glucose 254 H 70-106 mg/dl Current Medications Medications (Trade) Dose Ordered Sig/George Route Start Time Stop Time Status Last Admin Sodium Chloride 1,000 ml @ 1,000 mls/hr Q1H ONCE IV 05/01/25 11:30 05/01/25 12:29 DC 05/01/25 12:31 Ondansetron HCl (Zofran) 8 mg ONCE ONCE IV 05/01/25 11:30 05/01/25 11:31 DC 05/01/25 12:28 Pantoprazole Sodium (Protonix) 40 mg ONCE ONCE IV 05/01/25 11:30 05/01/25 11:31 DC 05/01/25 12:28 Ceftriaxone Sodium 50 ml @ 100 mls/hr ONCE ONCE IV 05/01/25 13:00 05/01/25 13:29 DC 05/01/25 12:55 Sodium Chloride 1,000 ml @ 1,000 mls/hr Q1H ONCE IV 05/01/25 15:45 05/01/25 16:44 05/01/25 15:46 Time of 1ST Reevaluation: 16:42 (Patient was given at least 2 L of normal saline bolus fluids. Orthostatics were repeated and patient is orthostatic hypotensive blood pressure drops in the 90s with slight tachycardia when she stands up. She says that this is not her normal self. She said she suffers from low blood pressure in general but not this low. She still have symptoms of lightheadedness and weakness. I will admit the patient to the hospital for further evaluation and treatment. She has never been worked up by cardiology in the past.) Patient Education/Counseling: Diagnosis, Treatment Family Education/Counseling: No Family Present Departure 1 Departure Time of Disposition: 16:21 Impression: Primary Impression: UTI (urinary tract infection) Additional Impressions: Alcohol abuse Dizziness Orthostatic hypotension Additional Instructions: Additional instructions: You MUST follow-up with your primary care/family doctor in 1 to 2 days. If you are unable to see your primary care/family doctor, please return to our emergency room for re-assessment and re-evaluation in 1 to 2 days. Return to the emergency room here in our facility or to the nearest ER [facility] if your symptoms change or worsen. CONSULTATIONS: you MUST Follow-up for consultation as soon as possible with: -cardiology and neurology in 1-2 days. Please call for appointment. You MUST call the consultants office yourself to make an appointment. You may need to arrange that through your insurance and/or your primary/family doctor. If you are unable to see the residential solar consultant in 1 to 2 days, you must return to our emergency room (or any other ER of your choice) for re-assessment and re- evaluation. Adequate fluid hydration. Below is a copy of your radiological report for follow up: e-Prescriptions Nitrofurantoin Monohydrate Mac (Macrobid) 100 Mg Cap 100 MG PO BID for 7 Days, #14 CAP Prov: YENNY SALEEM DO 05/01/25 Discharged With: Self Critical Care Note Critical Care Time?: No Heart Score Heart Score: Heart Score Response (Comments) Value History Slightly Suspicious 0 Age <45 0 Risk Factors 1 or 2 risk factors 1 Total 1 I personally scribed for YENNY SALEEM DO ([email or web address]) on 05/01/25 at 11:19. Electronically submitted by Jeannie Lopez ([email or web address]). I personally scribed for YENNY SALEEM DO ([email or web address]) on 05/01/25 at 12:04. Electronically submitted by Jeannie Lopez ([email or web address]). YENNY SALEEM DO May 01, 2025 11:19
--- NOTE | 2025-05-01 11:22 | ECG ---
[facility] Test Date: 2025-05-01 Test Time: 11:21:22 Pat Name: LAINEY CHONG Department: ER Room: 0290 Gender: F Lead Web Developer: MARY : 1985 Requested By: YENNY SALEEM Order Number: [id number] Reading MD: Joshua Slater Measurements Intervals [place] Rate: 91 P: 88 DC: 148 QRS: 91 QRSD: 95 T: 69 QT: 361 QTc: 445 Interpretive Statements Sinus rhythm Borderline right axis deviation Borderline T abnormalities, anterior leads Electronically Signed On 05-02-2025 20:12:38 PDT by Joshua Slater Please click the below link to view image of tracing.
[2025-05-01 11:36] LABS: Basophils # (auto) 0.1 10 ^3/uL (0-0.2); Eosinophils # (auto) 0 10 ^3/uL (0-0.8); Eosinophils % (auto) 0.5 % (0.0-7.0); Hematocrit 38.2 % (36.0-46.0); Hemoglobin 12.9 g/dL (12.2-16.2); Lymphocytes # (auto) 1.7 10 ^3/uL (0.4-5.4); Lymphocytes % (auto) 24.4 % (10.0-50.0); Mean Corpuscular Hemoglobin 30.1 pg (28.0-32.0); Mean Corpuscular Hgb Conc. 33.8 g/dL (32.0-36.0); Monocytes # (auto) 0.3 10 ^3/uL (0-1.3); Monocytes % (auto) 4.3 % (0.0-12.0); Neutrophils # (auto) 4.9 10 ^3/uL (1.6-8.6); Neutrophils % (auto) 69.8 % (37.0-80.0); Nucleated Red Blood Cells % 0.1 %; Platelet Count (auto) 366 10^3/uL (140-450); Red Blood Cells 4.29 10^6/uL (4.0-5.20); Red Cell Distribution Width 13.4 % (11.8-14.3)
[2025-05-01 11:55] LABS: Alanine Aminotransferase 19 U/L (7-40); Albumin 4.3 g/dL (3.2-4.8); Alkaline Phosphatase 99 U/L (46-116); Anion Gap 10 (5-15); Aspartate Aminotransferase 15 U/L (<34); BUN/Creatinine Ratio 18.1 (10.0-20.0); Bilirubin, Total 0.5 mg/dL (0.2-1.0); Blood Alcohol 4.3 mg/dL (<10); Blood Urea Nitrogen 21 mg/dL (9-23); Calcium 10.1 mg/dL (8.7-10.4); Carbon Dioxide 30 mmol/L (20-31); Chloride 99 mmol/L (98-107); Glucose 305 mg/dL (74-106); Magnesium 1.9 mg/dL (1.6-2.6); Potassium 4.2 mmol/L (3.5-5.1); Sodium 139 mmol/L (136-145)
[2025-05-01 11:59] LABS: Urine Bacteria MANY /hpf (None Seen); Urine Blood 1+ /uL (Negative); Urine Clarity Turbid (Clear); Urine Color Light-Orange (Yellow); Urine Mucus FEW (None Seen); Urine Protein, UAD TRACE (Negative); Urine Specific Gravity 1.027 (1.001-1.035); Urine Squamous Epithelial Cell MOD /hpf (<5); Urine Urobilinogen Normal (Negative); Urine WBC 198 /HPF (0-5)
[2025-05-01 12:14] LABS: Amphetamine Screen, Urine Neg (NEGATIVE); Barbiturate Scree,Urine Neg (NEGATIVE); Benzodiazephine Screen, Urine Neg (NEGATIVE); Cannabinoid Screen, Urine Neg (NEGATIVE); Cocaine Screen, Urine Neg (NEGATIVE); Opiate Scree,Urine Neg (NEGATIVE); Phencyclidine Screen, Urine Neg (NEGATIVE)
[2025-05-01] MEDS: PANTOPRAZOLE 40 MG/10 ML VIAL INJ IV ONE (12:28)
[2025-05-01] MEDS: ONDANSETRON HCL 4 MG/2 ML VIAL IV ONE (12:28)
[2025-05-01] MEDS: SODIUM CHLORIDE 0.9% 1,000 ML IV ONE ×2 (12:31→15:46)
[2025-05-01] MEDS ORDERED: cefTRIAXone 1GM/50ML D5W 50 ML IV ONE (12:45)
[2025-05-01] MEDS: cefTRIAXone 1GM/50ML D5W 50 ML IV ONE ×2 (12:52→12:55)
[2025-05-01] MEDS ORDERED: NITR-87 PO (16:23)
[2025-05-01] MEDS ORDERED: DOCUSATE SOD 100 MG CAP PO PRN (21:30)
[2025-05-01] MEDS ORDERED: HYDROcodone-ACET 5/325MG TAB PO PRN (21:30)
[2025-05-01] MEDS ORDERED: ONDANSETRON HCL 4 MG/2 ML VIAL IV PRN (21:30)
[2025-05-01] MEDS ORDERED: DEXTROSE (50%) 50ML SYRG IV PRN (21:30)
[2025-05-01] MEDS: ATORVASTATIN 20 MG TAB PO SCH (22:00)
[2025-05-01] MEDS: SODIUM CHLORIDE 0.9% 1,000 ML IV SCH (22:03)
--- NOTE | 2025-05-01 23:41 | DVHHP2 ---
History of Present Illness Reason for Visit: Intractable nausea and vomiting History of Present Illness The patient is a 40-year-old female with past medical history of diabetes mellitus, anemia, hyperlipidemia, thyroid disease, and hypertension who presented to [facility] with complaint of nausea and vomiting. Patient reports she had gone out with friends for her birthday and she had multiple drinks. The following morning, she started to have nausea, vomiting, diarrhea, dizziness, lightheadedness and pressure in her head, getting worse that prompted this visit. Patient was seen and evaluated in the ED, laboratory data shows WBC 7.0, platelets 366, sodium 139, potassium 4.2, BUN 21, creatinine 1.16, glucose 305, calcium 10.1, troponin < 3, blood pressure 114/78, heart rate 96, temperature 97.8 F, O2 saturation 98% on room air. Urinalysis positive for urinary tract infection. Patient was started on IV antibiotic regimen Rocephin, please see medication orders section in the computer. On my assessment, patient denied chest pain, no headache, no dizziness, no diaphoresis, no shortness of breath, no nausea, no vomiting, no fever, no chills. Patient was admitted for further evaluation and medical management. Past Medical History Anemia, DM, High Lipids, HTN, Thyroid Past Surgical History BTL, Family History Reviewed, noncontributory to the management of this case. Past Social History The patient lives at home, smokes cigarettes, drinks alcohol occasionally, denies illicit drugs abuse. Review of Systems Constitutional: Yes: Weakness; No: Fever, Chills, Sweats, Malaise, Other Eyes: No: Pain, Vision change, Conjunctivae inflammation, Eyelid inflammation, Other, Redness ENT: No: Ear pain, Ear discharge, Nose pain, Nose discharge, Nose congestion, Mouth pain, Mouth swelling, Throat pain, Throat swelling, Other Respiratory: No: Cough, Dry, Shortness of breath, SOB with excertion, Wheezing, Hemoptysis, Pleuritic Pain, Sputum, Wheezing, Other Cardiovascular: Lt Headedness; No: Chest Pain, Palpitations, Orthopnea, Paroxysmal Noc. Dyspnea, Edema, Other Gastrointestinal: Nausea, Vomiting, Diarrhea; No: Abdominal Pain, Constipation, Melena, Hematochezia, Other Genitourinary: No Dysuria, No Frequency, No Incontinence, No Hematuria, No Retention, No Other Musculoskeletal: No: other, neck pain, shoulder pain, arm pain, back pain, hand pain, leg pain, foot pain Skin: No: Rash, Lesions, Jaundice, Bruising, Other Neurological: No: Weakness, Numbness, Incoordination, Change in speech, Confusion, Seizures, Other Allergies: Coded Allergies: NO KNOWN ALLERGIES (Unverified , 04/15/13) Medications Current Medications Medications Dose Ordered Sig/George Route Start Time Stop Time Status Last Admin Dose Admin Ceftriaxone Sodium 50 ml @ 100 mls/hr DAILY@09 IV 05/02/25 09:00 Atorvastatin Calcium 20 mg HS PO 05/01/25 22:00 Fluoxetine HCl 20 mg DAILY PO 05/02/25 10:00 Levothyroxine Sodium 88 mcg QAM@0600 PO 05/02/25 06:00 Pantoprazole Sodium 40 mg DAILY IV 05/02/25 10:00 Diagnostic Test (Pha) 1 strip IQ4HR 05/02/25 00:00 Insulin Human Regular IQ4HR SC 05/02/25 00:00 Dextrose 50 ml UD PRN IV 05/01/25 21:30 Sodium Chloride 1,000 ml @ 60 mls/hr [id number] IV 05/01/25 21:30 Acetaminophen/ Hydrocodone Bitart 1 tab Q4HP PRN PO 05/01/25 21:30 Ondansetron HCl 4 mg Q4HP PRN IV 05/01/25 21:30 Docusate Sodium 100 mg BIDPRN PRN PO 05/01/25 21:30 Acetaminophen 650 mg Q6HP PRN PO 05/01/25 21:30 Exam Vital Signs Vital Signs Date Time Temp Pulse Resp B/P (MAP) Pulse Ox O2 Delivery O2 Flow Rate FiO2 05/01/25 20:07 97.8 93 16 114/78 (90) 95 97.8 05/01/25 12:32 Room Air General Appearance: Alert, Oriented X3, Cooperative, No acute distress HEENT: Atraumatic, PERRLA, EOMI, Mucous membr. moist/pink Respiratory: Clear to auscultation, Normal air movement Cardiovascular: Regular rate, Normal S1, Normal S2, No murmurs Abdominal: Normal bowel sounds, Soft, No tenderness, No hepatospenomegaly, No masses Extremities: No clubbing, No cyanosis, No edema, Normal pulses, No tenderness/swelling Skin: No rashes, No breakdown, No significant lesion Neuro: Normal speech, Normal tone, Sensation intact, Cranial nerves 3-12 NL, Reflexes 2+, Other (Generalized weakness) Psych/Mental Status: Mental status NL, Mood NL Labs/Xrays Labs Test 05/01/25 12:52 05/01/25 11:26 05/01/25 11:15 05/01/25 11:11 Range/Units Troponin I High Sensitivity < 3 L </=34 ng/L Thyroid Stimulating Hormone (TSH) 3.44 0.55-4.78 uIU/mL White Blood Count 7.0 4.4-10.8 10^3/uL Red Blood Count 4.29 4.0-5.20 10^6/uL Hemoglobin 12.9 12.2-16.2 g/dL Hematocrit 38.2 36.0-46.0 % Mean Corpuscular Volume 89.0 80.0-100.0 fL Mean Corpuscular Hemoglobin 30.1 28.0-32.0 pg Mean Corpuscular Hemoglobin Concent 33.8 32.0-36.0 g/dL Red Cell Distribution Width 13.4 11.8-14.3 % Platelet Count 366 140-450 10^3/uL Mean Platelet Volume 8.8 6.9-10.8 fL Neutrophils (%) (Auto) 69.8 37.0-80.0 % Lymphocytes (%) (Auto) 24.4 10.0-50.0 % Monocytes (%) (Auto) 4.3 0.0-12.0 % Eosinophils (%) (Auto) 0.5 0.0-7.0 % Basophils (%) (Auto) 1.0 0.0-2.0 % Neutrophils # (Auto) 4.9 1.6-8.6 10 ^3/uL Lymphocytes # (Auto) 1.7 0.4-5.4 10 ^3/uL Monocytes # (Auto) 0.3 0-1.3 10 ^3/uL Eosinophils # (Auto) 0 0-0.8 10 ^3/uL Basophils # (Auto) 0.1 0-0.2 10 ^3/uL Nucleated Red Blood Cells 0.1 % Sodium Level 139 136-145 mmol/L Potassium Level 4.2 3.5-5.1 mmol/L Chloride Level 99 98-107 mmol/L Carbon Dioxide Level 30 20-31 mmol/L Anion Gap 10 5-15 Blood Urea Nitrogen 21 9-23 mg/dL Creatinine 1.16 H 0.550-1.02 mg/dL Glomerular Filtration Rate Calc 60 >90 mL/min BUN/Creatinine Ratio 18.1 10.0-20.0 Serum Glucose 305 H 74-106 mg/dL Lactic Acid Level 1.3 0.4-2.0 mmol/L Calcium Level 10.1 8.7-10.4 mg/dL Magnesium Level 1.9 1.6-2.6 mg/dL Total Bilirubin 0.5 0.2-1.0 mg/dL Aspartate Amino Transferase (AST) 15 <34 U/L Alanine Aminotransferase (ALT) 19 7-40 U/L Alkaline Phosphatase 99 46-116 U/L Total Protein 7.0 5.7-8.2 g/dL Albumin 4.3 3.2-4.8 g/dL Plasma/Serum Blood Alcohol 4.3 <10 mg/dL Urine Color Light-orange Yellow Urine Clarity Turbid H Clear Urine pH 5.0 5.0-9.0 Urine Specific [place] 1.027 1.001-1.035 Urine Protein Trace H Negative Urine Ketones 2+ H Negative Urine Blood 1+ H Negative /uL Urine Nitrite 2+ H Negative Urine Bilirubin Negative Negative Urine Urobilinogen Normal Negative mg/dL Urine Leukocyte Esterase 3+ Negative /uL Urine RBC 9 0 - 4 /hpf Urine Microscopic WBC 198 H 0-5 /HPF Urine Squamous Epithelial Cells Mod <5 /hpf Urine Bacteria Many H None Seen /hpf Urine Mucus Few None Seen Urine Glucose 4+ H Normal mg/dL Urine Opiates Screen Neg NEGATIVE Urine Fentanyl Screen Neg NEGATIVE Urine Barbiturates Screen Neg NEGATIVE Urine Phencyclidine Screen Neg NEGATIVE Urine Amphetamines Screen Neg NEGATIVE Urine Benzodiazepines Screen Neg NEGATIVE Urine Cocaine Screen Neg NEGATIVE Urine Cannabinoids Screen Neg NEGATIVE POC Glucose 254 H 70-106 mg/dl Assessment/Plan Assessment/Plan Intractable nausea and vomiting UTI (urinary tract infection) Generalized weakness Diabetes mellitus with hyperglycemia Plan 1. Admit to med surge unit 2. Breathing treatment 3. Pain control management 4. IV antibiotic management 5. Management of fluids and electrolytes 6. Consultation for hospitalist 7. Diagnostic test chest x-ray 8. DVT prophylaxis-on SCDs 9. Repeat labs CBC, CMP in a.m. 10. Home medication reviewed and reconciled 11. Continue with current medical management 12. Treatment plan discussed with patient and RN. Patient verbalized unders tanding. Plan discussed with: Patient, Other (RN) My Orders Orders - FRANCES MCWILLIAMS DNP Procedure Category Date Status Time Urine Bacterial KEARA 05/01/25 In Process Culture 21:30 Ceftriaxone 1gm/50ml PHA 05/02/25 In Process D5w (Rocephin) 09:00 Atorvastatin (Lipitor) PHA 05/01/25 In Process 22:00 Fluoxetine Capsule PHA 05/02/25 In Process (Prozac Capsule) 10:00 Levothyroxine Tablet PHA 05/02/25 In Process (Synthroid Tablet) 06:00 Pantoprazole PHA 05/02/25 In Process (Protonix) 10:00 Glucose Blood PHA 05/02/25 In Process (Accu-Chek Comfort 00:00 Insulin R (Human) PHA 05/02/25 In Process (Insulin R) 00:00 Dextrose 50% Syringe PHA 05/01/25 In Process 21:30 Allergies STEVE 05/01/25 In Process 21:30 Code Status CODE 05/01/25 Transmitted 21:30 Sodium Chloride 0.9% PHA 05/01/25 In Process 21:30 Oxygen Per Hour RT 05/01/25 Transmitted 21:30 Hydrocodone-Acet PHA 05/01/25 In Process 5/325mg Tab ([place] 21:30 Ondansetron Hcl PHA 05/01/25 In Process (Zofran) 21:30 Docusate Sodium PHA 05/01/25 In Process Capsule (Colace 21:30 Complete Blood Count LAB 05/02/25 Verified 04:00 Comprehensive LAB 05/02/25 Verified Metabolic Panel 04:00 Condition: Serious STEVE 05/01/25 In Process 21:30 Acetaminophen Tablet PHA 05/01/25 In Process (Tylenol Tablet) 21:30 Bedrest With Bathroom STEVE 05/01/25 In Process Privileg 21:30 Sequential STEVE 05/01/25 In Process Compression Device Clear Liq Diet DIET 05/02/25 Transmitted Breakfast Admit ADMIT 05/01/25 Verified 23:39 Nitroglycerin PHA 05/01/25 Verified Sublingual (Ntrostat 23:45 Morphine Sulfate PHA 05/01/25 Verified Injection 23:45 Notify Of Changes STEVE 05/01/25 Verified From Base 23:39 Emergency Dysrhythmia STEVE 05/01/25 Verified Protocol 23:39 Oxygen By Nasal RT 05/01/25 Verified Cannula 23:39 Problem List: (1) Intractable nausea and vomiting (2) UTI (urinary tract infection) (3) Generalized weakness (4) Diabetes mellitus with hyperglycemia Date of Service: May 01, 2025 Billing Provider: FRANCES MCWILLIAMS DNP Common Visit Codes: [id number] INP/OBS CARE (HIGH) FRANCES MCWILLIAMS DNP May 01, 2025 23:41
[2025-05-01] MEDS ORDERED: MORPHINE SULFATE INJ 2 MG/ml SYRG IV PRN (23:45)
[2025-05-01] MEDS ORDERED: NITROGLYCERIN 0.4 MG SL TAB SL PRN (23:45)
[2025-05-02] VITALS (8 sets, daily range): BP systolic 89–124; BP diastolic 57–83; PULSE 53–96; RESP 12–20; TEMP 97.6–99.2; O2SAT 94–98
[2025-05-02] MEDS: ACCU-CHEK COMFORT CURVE STRIP VI SCH
[2025-05-02] MEDS: InsuLIN REG 1unit/0.01ml Soln (100units/ml) SC SCH
[2025-05-02] MEDS ORDERED: FLUO-470 PO (02:21)
[2025-05-02] MEDS ORDERED: [UNRECOGNIZED DRUG - CODE] PO (02:21)
[2025-05-02] MEDS ORDERED: INSU100I54 SC (02:21)
[2025-05-02] MEDS ORDERED: MIDO5TAB4 PO (02:21)
[2025-05-02] MEDS: LEVOTHYROXINE SODIUM 88 MCG TAB PO SCH (06:10)
[2025-05-02 06:40] LABS: Basophils # (auto) 0.1 10 ^3/uL (0-0.2); Basophils % (auto) 0.8 % (0.0-2.0); Eosinophils # (auto) 0.1 10 ^3/uL (0-0.8); Eosinophils % (auto) 1.3 % (0.0-7.0); Hematocrit 33.6 % (36.0-46.0); Hemoglobin 11.5 g/dL (12.2-16.2); Lymphocytes # (auto) 2.3 10 ^3/uL (0.4-5.4); Lymphocytes % (auto) 34.4 % (10.0-50.0); Mean Corpuscular Hemoglobin 30.3 pg (28.0-32.0); Mean Corpuscular Hgb Conc. 34.3 g/dL (32.0-36.0); Mean Corpuscular Volume 88.3 fL (80.0-100.0); Monocytes # (auto) 0.4 10 ^3/uL (0-1.3); Neutrophils # (auto) 3.8 10 ^3/uL (1.6-8.6); Neutrophils % (auto) 57.5 % (37.0-80.0); Platelet Count (auto) 331 10^3/uL (140-450); Red Blood Cells 3.81 10^6/uL (4.0-5.20); Red Cell Distribution Width 13.2 % (11.8-14.3); White Blood Cell 6.7 10^3/uL (4.4-10.8)
[2025-05-02 07:02] LABS: Alanine Aminotransferase 20 U/L (7-40); Albumin 3.9 g/dL (3.2-4.8); Alkaline Phosphatase 85 U/L (46-116); Anion Gap 8 (5-15); Aspartate Aminotransferase 16 U/L (<34); BUN/Creatinine Ratio 18.4 (10.0-20.0); Blood Urea Nitrogen 19 mg/dL (9-23); Calcium 9.1 mg/dL (8.7-10.4); Chloride 105 mmol/L (98-107); Potassium 3.7 mmol/L (3.5-5.1); Sodium 144 mmol/L (136-145); Total Protein 6.4 g/dL (5.7-8.2)
[2025-05-02 07:03] LABS: Bilirubin, Total 0.2 mg/dL (0.2-1.0); Carbon Dioxide 31 mmol/L (20-31); Glucose 202 mg/dL (74-106)
[2025-05-02] MEDS: PANTOPRAZOLE 40 MG/10 ML VIAL INJ IV SCH (08:42)
[2025-05-02] MEDS: cefTRIAXone 1GM/50ML D5W 50 ML IV SCH (08:42)
[2025-05-02] MEDS: FLUoxetine HCL 20 MG CAP PO SCH (08:43)
[2025-05-02] MEDS: ACETAMINOPHEN 325 MG TAB PO PRN (08:45)
--- NOTE | 2025-05-02 15:38 | DVHPN2 ---
Subjective I am assuming they get up the patient from today onwards. Patient currently denies any nausea or vomiting. Changes from previous H/P or p: No Changes Eyes: No Pain, No Vision change, No Conjunctivae inflammation, No Eyelid inflammation, No Other, No Redness ENT: No Ear pain, No Ear discharge, No Nose pain, No Nose discharge, No Nose congestion, No Mouth pain, No Mouth swelling, No Throat pain, No Throat swelling, No Other Cardiovascular: No Chest Pain, No Palpitations, No Orthopnea, No Paroxysmal Noc. Dyspnea, No Edema; Lt Headedness; No Other Respiratory: No Cough, No Dry, No Shortness of breath, No SOB with excertion, No Wheezing, No Hemoptysis, No Pleuritic Pain, No Sputum, No Other Gastrointestinal: Nausea, Vomiting; No Abdominal Pain; Diarrhea; No Constipation, No Melena, No Hematochezia, No Other Genitourinary: No Dysuria, No Frequency, No Incontinence, No Hematuria, No Retention, No Other Musculoskeletal: No other, No neck pain, No shoulder pain, No arm pain, No back pain, No hand pain, No leg pain, No foot pain Skin: No Rash, No Lesions, No Jaundice, No Bruising, No Other Objective Vitals Vital Signs Date Time Temp Pulse Resp B/P (MAP) Pulse Ox O2 Delivery O2 Flow Rate FiO2 05/02/25 12:40 97.6 80 12 106/71 (83) 98 97.6 05/01/25 12:32 Room Air Intake/Output Intake and Output 05/02/25 07:00 Intake Total 2100 ml Balance 2100 ml Intake IV Total 2100 ml Exam HEENT pupils reactive Neck is supple CVS S1-S2 regular rate and rhythm Respiratory bilateral equal breath sounds GI positive bowel sounds Extremity no pitting edema 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 [employer]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 no motor deficit Medications Current Medications Medications Dose Ordered Sig/George Route Start Time Stop Time Status Last Admin Dose Admin Ceftriaxone Sodium 50 ml @ 100 mls/hr DAILY@09 IV 05/02/25 09:00 05/02/25 08:42 100 MLS/HR Atorvastatin Calcium 20 mg HS PO 05/01/25 22:00 Fluoxetine HCl 20 mg DAILY PO 05/02/25 10:00 05/02/25 08:43 20 MG Levothyroxine Sodium 88 mcg QAM@0600 PO 05/02/25 06:00 05/02/25 06:10 88 MCG Pantoprazole Sodium 40 mg DAILY IV 05/02/25 10:00 05/02/25 08:42 40 MG Diagnostic Test (Pha) 1 strip IQ4HR 05/02/25 00:00 05/02/25 11:42 1 STRIP Insulin Human Regular IQ4HR SC 05/02/25 00:00 05/02/25 11:42 6 UNITS Dextrose 50 ml UD PRN IV 05/01/25 21:30 Sodium Chloride 1,000 ml @ 60 mls/hr [id number] IV 05/01/25 21:30 05/02/25 11:02 60 MLS/HR Acetaminophen/ Hydrocodone Bitart 1 tab Q4HP PRN PO 05/01/25 21:30 Ondansetron HCl 4 mg Q4HP PRN IV 05/01/25 21:30 Docusate Sodium 100 mg BIDPRN PRN PO 05/01/25 21:30 Acetaminophen 650 mg Q6HP PRN PO 05/01/25 21:30 05/02/25 08:45 650 MG Nitroglycerin 0.4 mg Q5MINP PRN SL 05/01/25 23:45 Morphine Sulfate 2 mg Q30M PRN IV 05/01/25 23:45 Insulin Glargine 40 units HS SC 05/02/25 22:00 UNV Laboratory Results Laboratory Tests 05/02/25 06:17 Chemistry Test 05/02/25 06:17 Albumin 3.9 g/dL (3.2-4.8) Calcium Level 9.1 mg/dL (8.7-10.4) Total Protein 6.4 g/dL (5.7-8.2) LFT Test 05/02/25 06:17 Alanine Aminotransferase (ALT) 20 U/L (7-40) Alkaline Phosphatase 85 U/L (46-116) Aspartate Amino Transferase (AST) 16 U/L (<34) Total Bilirubin 0.2 mg/dL (0.2-1.0) Urinalysis Test 05/01/25 11:15 Urine Color Light-orange (Yellow) Urine Clarity Turbid (Clear) H Urine pH 5.0 (5.0-9.0) Urine Specific [place] 1.027 (1.001-1.035) Urine Protein Trace (Negative) H Urine Ketones 2+ (Negative) H Urine Blood 1+ /uL (Negative) H Urine Nitrite 2+ (Negative) H Urine Bilirubin Negative (Negative) Urine Urobilinogen Normal mg/dL (Negative) Urine Leukocyte Esterase 3+ /uL (Negative) Urine RBC 9 /hpf (0 - 4) Urine Microscopic WBC 198 /HPF (0-5) H Urine Squamous Epithelial Cells Mod /hpf (<5) Urine Bacteria Many /hpf (None Seen) H Urine Mucus Few (None Seen) Urine Glucose 4+ mg/dL (Normal) H Microbiology Microbiology Date/Time Source Procedure Growth Status 05/01/25 11:15 Voided Urine Urine Culture - Preliminary Resulted Assessment/Plan Assessment/Plan 40-year-old female with a known history of insulin dependent diabetes mellitus type 2, hypertension, hypothyroidism, anxiety and depression disorder currently gumline syndrome presented to the hospital with intractable nausea vomiting after alcoholic drinks found to have 1. Intractable nausea vomiting 2. Hyperglycemia in the setting of diabetes mellitus type 2 3. Hypertension 4. Insulin dependent diabetes mellitus type 2 5. Hypothyroidism 6. Anxiety and depression disorder, decompensated 7. Chronic alcoholism 8. UTI -IV antibiotics, complete alcohol abstinence -diabetic diet as tolerated, resume insulin, discharge plan. Plan discussed with: Patient My Orders Orders - GEOVANY UP MD Procedure Category Date Status Time Consistent DIET 05/02/25 Transmitted Carb(Ccho)Diabetes Dinner Insulin Lantus PHA 05/02/25 Logged (Glargine) (Lantus) 22:00 Date of Service: May 02, 2025 Billing Provider: GEOVANY UP MD Common Visit Codes: [id number] INP/OBS CARE(MOD) GEOVANY UP MD May 02, 2025 15:38
[2025-05-02] MEDS: INSULIN LANTUS (GLARGINE) 1 /0.01ml (100units/ml) SC SCH (21:37)
[2025-05-03 05:00] VITALS: BP 115/80; PULSE 87; RESP 14; TEMP 98.3; O2SAT 96
[2025-05-03 09:00] VITALS: BP 111/80; PULSE 87; RESP 20; TEMP 97.2; O2SAT 95
[2025-05-03 13:00] VITALS: BP 139/89; PULSE 95; RESP 20; TEMP 98.1; O2SAT 97
[2025-05-03] MEDS ORDERED: CEFD300C2 PO (14:44)
--- NOTE | 2025-05-03 14:45 | DVHDS2 ---
Discharge Summary Date of Admission May 01, 2025 at 23:39 Date of Discharge: May 03, 2025 Labs/Diagnostic Data: Laboratory Results Test 05/03/25 12:13 05/02/25 06:17 05/01/25 12:52 05/01/25 11:26 POC Glucose 347 mg/dl (70-106) White Blood Count 6.7 10^3/uL (4.4-10.8) Red Blood Count 3.81 10^6/uL (4.0-5.20) Hemoglobin 11.5 g/dL (12.2-16.2) Hematocrit 33.6 % (36.0-46.0) Mean Corpuscular Volume 88.3 fL (80.0-100.0) Mean Corpuscular Hemoglobin 30.3 pg (28.0-32.0) Mean Corpuscular Hemoglobin Concent 34.3 g/dL (32.0-36.0) Red Cell Distribution Width 13.2 % (11.8-14.3) Platelet Count 331 10^3/uL (140-450) Mean Platelet Volume 9.0 fL (6.9-10.8) Neutrophils (%) (Auto) 57.5 % (37.0-80.0) Lymphocytes (%) (Auto) 34.4 % (10.0-50.0) Monocytes (%) (Auto) 6.0 % (0.0-12.0) Eosinophils (%) (Auto) 1.3 % (0.0-7.0) Basophils (%) (Auto) 0.8 % (0.0-2.0) Neutrophils # (Auto) 3.8 10 ^3/uL (1.6-8.6) Lymphocytes # (Auto) 2.3 10 ^3/uL (0.4-5.4) Monocytes # (Auto) 0.4 10 ^3/uL (0-1.3) Eosinophils # (Auto) 0.1 10 ^3/uL (0-0.8) Basophils # (Auto) 0.1 10 ^3/uL (0-0.2) Nucleated Red Blood Cells 0.0 % Sodium Level 144 mmol/L (136-145) Potassium Level 3.7 mmol/L (3.5-5.1) Chloride Level 105 mmol/L (98-107) Carbon Dioxide Level 31 mmol/L (20-31) Anion Gap 8 (5-15) Blood Urea Nitrogen 19 mg/dL (9-23) Creatinine 1.03 mg/dL (0.550-1.02) Glomerular Filtration Rate Calc 70 mL/min (>90) BUN/Creatinine Ratio 18.4 (10.0-20.0) Serum Glucose 202 mg/dL (74-106) Calcium Level 9.1 mg/dL (8.7-10.4) Total Bilirubin 0.2 mg/dL (0.2-1.0) Aspartate Amino Transferase (AST) 16 U/L (<34) Alanine Aminotransferase (ALT) 20 U/L (7-40) Alkaline Phosphatase 85 U/L (46-116) Total Protein 6.4 g/dL (5.7-8.2) Albumin 3.9 g/dL (3.2-4.8) Troponin I High Sensitivity < 3 ng/L (</=34) Thyroid Stimulating Hormone (TSH) 3.44 uIU/mL (0.55-4.78) Lactic Acid Level 1.3 mmol/L (0.4-2.0) Magnesium Level 1.9 mg/dL (1.6-2.6) Plasma/Serum Blood Alcohol 4.3 mg/dL (<10) Test 05/01/25 11:15 Urine Color Light-orange (Yellow) Urine Clarity Turbid (Clear) Urine pH 5.0 (5.0-9.0) Urine Specific [place] 1.027 (1.001-1.035) Urine Protein Trace (Negative) Urine Ketones 2+ (Negative) Urine Blood 1+ /uL (Negative) Urine Nitrite 2+ (Negative) Urine Bilirubin Negative (Negative) Urine Urobilinogen Normal mg/dL (Negative) Urine Leukocyte Esterase 3+ /uL (Negative) Urine RBC 9 /hpf (0 - 4) Urine Microscopic WBC 198 /HPF (0-5) Urine Squamous Epithelial Cells Mod /hpf (<5) Urine Bacteria Many /hpf (None Seen) Urine Mucus Few (None Seen) Urine Glucose 4+ mg/dL (Normal) Urine Opiates Screen Neg (NEGATIVE) Urine Fentanyl Screen Neg (NEGATIVE) Urine Barbiturates Screen Neg (NEGATIVE) Urine Phencyclidine Screen Neg (NEGATIVE) Urine Amphetamines Screen Neg (NEGATIVE) Urine Benzodiazepines Screen Neg (NEGATIVE) Urine Cocaine Screen Neg (NEGATIVE) Urine Cannabinoids Screen Neg (NEGATIVE) Other Laboratory Tests 05/02/25 06:17 Brief Hx & Hospital Course: 40-year-old female with a known history of insulin dependent diabetes mellitus type 2, hypertension, hypothyroidism, anxiety and depression disorder currently compensated, presented to the hospital with intractable nausea vomiting after alcoholic drinks found to have intractable nausea and vomiting and hyperglycemia. Patient was admitted started on IV fluids. Patient was watch for any alcohol withdrawal syndrome. Patient's intractable nausea and vomiting has been resolved currently tolerating diet. Patient was also found to have UTI which was treated with the IV antibiotics. Patient will be given p.o. antibiotics upon discharge. Outpatient follow up with the alcoholic anonymous. Patient is currently understand verbalized understanding and agreeable to plan. Complete alcohol abstinence was recommended. Condition at Discharge: Stable Final Diagnosis/Problems List 40-year-old female with a known history of insulin dependent diabetes mellitus type 2, hypertension, hypothyroidism, anxiety and depression disorder currently gumline syndrome presented to the hospital with intractable nausea vomiting after alcoholic drinks found to have 1. Intractable nausea vomiting 2. Hyperglycemia in the setting of diabetes mellitus type 2 3. Hypertension 4. Insulin dependent diabetes mellitus type 2 5. Hypothyroidism 6. Anxiety and depression disorder, decompensated 7. Chronic alcoholism 8. UTI Discharge Disposition: Home SNF Discharge Will this Physician continue t: No Discharge Instruct/Medications Diet: Cardiac 2g Na,low cholest Diet comment: 1800 ADA diet Activity: No Restrictions, As Tolerated Follow Up/Referral: Follow up with the PCP in 1-2 weeks Medications: Resume home medications Discharge Statement: "Patient was advised to return to the ER or call 911 if any headaches, dizziness, shortness of breath, chest pain, abdominal pain, bleeding, fevers, or worsening of medical condition. Patient was counseled about treatment plan, medications, possible side effects, patientverbalized understanding. All questions were answered to the best of my ability. This discharge took greater then 30 minutes in planning, reviewing documentation, counseling the patient, and discussing with other team members." ASSESSMENT ASSESSMENT Assessment 40-year-old female with a known history of insulin dependent diabetes mellitus type 2, hypertension, hypothyroidism, anxiety and depression disorder currently gumline syndrome presented to the hospital with intractable nausea vomiting after alcoholic drinks found to have 1. Intractable nausea vomiting 2. Hyperglycemia in the setting of diabetes mellitus type 2 3. Hypertension 4. Insulin dependent diabetes mellitus type 2 5. Hypothyroidism 6. Anxiety and depression disorder, decompensated 7. Chronic alcoholism 8. UTI Date of Service: May 03, 2025 Billing Provider: GEOVANY UP MD Common Visit Codes: [id number] DISCH DAY >30min GEOVANY UP MD May 03, 2025 14:45
[2025-05-03 16:41] VITALS: BP 129/86; PULSE 92; RESP 20; TEMP 97.9; O2SAT 97
[2025-05-03 16:57] VITALS: BP 139/89; PULSE 95; RESP 20; TEMP 98.1; O2SAT 97
== END 2025-05-03 18:46 | disposition home or self-care (01) | DRG 241 ==
LOC: ER 11:02 → OVERFLOW 23:39 → WEST WING 05-02 15:10
PROVIDERS: ADMIT Nurse Practitioner Family; ATTEND Nurse Practitioner Family
DX: K29.70 Gastritis, unspecified, without bleeding (principal); E03.9 Hypothyroidism, unspecified; E11.65 Type 2 diabetes mellitus with hyperglycemia; F10.20 Alcohol dependence, uncomplicated; I10 Essential (primary) hypertension; F32.A Depression, unspecified; F41.9 Anxiety disorder, unspecified; I95.1 Orthostatic hypotension; F17.210 Nicotine dependence, cigarettes, uncomplicated; E78.5 Hyperlipidemia, unspecified; Z83.3 Family history of diabetes mellitus; Z79.4 Long term (current) use of insulin; Y90.0 Blood alcohol level of less than 20 mg/100 ml; N30.00 Acute cystitis without hematuria
CPT/HCPCS: 36415; 80053; 80307; 80320; 81001; 82962; 83605; 83735; 84443; 84484; 85025; 87086; 93005; 96365; 96375; G0378; J1815; J2405; J2470

== ENCOUNTER → 2025-05-13 | Outpatient (CLI) | payer MEDICAID ==
[~2025-05-13] MED LIST changes: -AMOX875T4 PO; +CEFD300C2 PO; -CIPR-173 PO; -FLUO-125; +FLUO-470 PO; -FLUO10TA18 PO; +INSU100I54 SC; +MIDO5TAB4 PO; +[UNRECOGNIZED DRUG - CODE] PO
== END | disposition home or self-care (01) ==
LOC: LAB 08:02
PROVIDERS: ATTEND Internal Medicine
DX: I10 Essential (primary) hypertension (principal); E11.9 Type 2 diabetes mellitus without complications
CPT/HCPCS: 82533

== ENCOUNTER 2025-07-14 18:03 | Emergency (ER) | payer MEDICAID ==
[~2025-07-14] VITALS: Ht 167.6 cm; Wt 97.8 kg
--- NOTE | 2025-07-14 18:38 | ED.PDOC ---
HPI (NEURO) HPI Comments This is a 40 year-old female, with a PMHX of HTN and DM, who presents to the ED with a chief complaint of headache for X3 days. Patient reports this happening before, with about X5 episodes last year. Patient states her headache is usually in relation to low blood pressure, around 70/56. Patient reports headache as constant, with no alleviating factors via Tylenol or Motrin. Patient denies being seen by a PCP or Neurologist. Patient has no further complaints at this time and otherwise denies chest pain, N/V, dizziness, blurred vision, or LOC. Past Medical History: DM, HTN Past Surgical History: Social History: Denies ETOH, smoking, and drug use. Medications: Allergies: CASTILLO: MEGHAN: Poor Historian. REVIEW OF SYSTEMS: CONSTITUTIONAL: Denies acute: fever, diaphoresis, chills, generalized weakness. HEAD: Denies acute: photophobia Eyes: Denies acute: Double vision, vision loss, eye pain, eye discharge. EARS: Denies acute: tinnitus, hearing loss, ear discharge, ear pain, THROAT: Denies acute: sore throat, swelling, difficulty swallowing , pain with swallowing, change in voice. NECK: Denies acute: neck pain, neck swelling, stiff neck. HEART: Denies acute : chest pain, palpitations, LUNGS: Denies acute: SOB, wheezing, cough, hemoptysis ABDOMEN: Denies acute: abdominal pain, Nausea, Vomiting, diarrhea, melena , hematemesis, hematochezia SKIN: Denies acute: rash, redness, lesions, itchiness. EXTREMITIES: Denies acute: calf pain, numbness, tingling, weakness, denies pain in extremity. Denies acute: Low back pain. Neuro: Denies acute: focal neurological deficit, motor or sensory focal neurological deficit, tremors, seizure like activity, confusion, dizziness, change in mental status, loss of bowel or bladder function, cauda equina like symptoms. : Denies acute: dysuria, hematuria, flank pain, increase in urinary frequency. PSYCH: Denies acute: hallucination, suicidal ideation, homicidal ideation. FEMALE: Denies acute: abnormal vaginal bleeding, foul odor, unusual discharge. PHYSICAL EXAM: General: ----no----acute distress, awake and alert. Head: normocephalic, atraumatic. Neck: supple, trachea is midline, no swelling. Throat: Normal phonation. Eyes:, no erythema, no purulent discharge, no proptosis, no icterus. Heart: regular rate, regular rhythm, no significant murmur appreciated. Lungs: no apparent respiratory distress, Able to speak in full sentences. No wheezing, no rhonchi, no crackles. No stridors Clear to auscultation bilaterally. Abdomen: non tender to palpation, non distended, soft, no guarding, no rebound, + bowel sounds. Neuro: Awake, Alert, oriented to name, self, situation, follows commands GCS=15. Speech is normal. Skin: no petechia, no purpura, no cyanosis, non-pale, not jaundice. Lower extremities: --no - Pitting edema no deformity, no focal swelling, no calf TTP. Makes eye contact. moves all four extremities. Face: no apparent facial droop. Ambulating in the ED independently. PERRLA, EOM-I CN 2-12 are grossly intact, No nystagmus. No nuchal rigidity, Kernig's sign, Brudzinski's sign, no meningeal signs. ED COURSE: DISCLAIMER: This medical document was created using an electronic medical record system with voice recognition software and computerized dictation system. Although this document has been carefully reviewed, there might still be some phonetic and typographical errors. Occasional wrong-word or "sound-alike" substitutions may have occurred due to the inherent limitations of voice recognition software. These areas are purely typographical due to imperfections of the software programs and do not reflect any compromise in the patient's medical care. Please read the chart carefully and recognize, using context, where these substitutions have occurred. 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 Was a procedure done?: No Differential Diagnosis (SZ) Seizure: N/A Headache: Cluster, Migraine, Sinusitis, Other (DDX include Sinusitis, migraine, meningitis, hypertension, intracranial mass/bleed, stroke, radiculopathy, vertebrobasillary insufficiency, cephalgia, pseudotumor cerebri, cerebellar ischemia/infarct, carotid stenosis, lacunar infarct, vertebral/carotid artery dissection, hydrocephalus, temporal arteritis, dura venous sinus thrombosis.) X-Ray, Labs, Meds, VS Vital Signs Date Time Temp Pulse Resp B/P (MAP) Pulse Ox O2 Delivery O2 Flow Rate FiO2 07/14/25 19:49 Room Air* 0 21 07/14/25 19:47 98.1 99 14 147/81 (103) 100 98.1 07/14/25 18:07 99.4 100 18 116/78 97 99.4 Lab Test 07/14/25 20:21 07/14/25 18:45 Range/Units POC Glucose 359 H 70-106 mg/dl White Blood Count 8.8 4.4-10.8 10^3/uL Red Blood Count 4.14 4.0-5.20 10^6/uL Hemoglobin 12.5 12.2-16.2 g/dL Hematocrit 36.0 36.0-46.0 % Mean Corpuscular Volume 87.1 80.0-100.0 fL Mean Corpuscular Hemoglobin 30.3 28.0-32.0 pg Mean Corpuscular Hemoglobin Concent 34.8 32.0-36.0 g/dL Red Cell Distribution Width 13.1 11.8-14.3 % Platelet Count 335 140-450 10^3/uL Mean Platelet Volume 9.6 6.9-10.8 fL Neutrophils (%) (Auto) 67.6 37.0-80.0 % Lymphocytes (%) (Auto) 25.1 10.0-50.0 % Monocytes (%) (Auto) 5.3 0.0-12.0 % Eosinophils (%) (Auto) 1.0 0.0-7.0 % Basophils (%) (Auto) 1.0 0.0-2.0 % Neutrophils # (Auto) 6.0 1.6-8.6 10 ^3/uL Lymphocytes # (Auto) 2.2 0.4-5.4 10 ^3/uL Monocytes # (Auto) 0.5 0-1.3 10 ^3/uL Eosinophils # (Auto) 0.1 0-0.8 10 ^3/uL Basophils # (Auto) 0.1 0-0.2 10 ^3/uL Nucleated Red Blood Cells 0.0 % Sodium Level 135 L 136-145 mmol/L Potassium Level 4.7 3.5-5.1 mmol/L Chloride Level 99 98-107 mmol/L Carbon Dioxide Level 27 20-31 mmol/L Anion Gap 9 5-15 Blood Urea Nitrogen 20 9-23 mg/dL Creatinine 1.20 H 0.550-1.02 mg/dL Glomerular Filtration Rate Calc 58 >90 mL/min BUN/Creatinine Ratio 16.7 10.0-20.0 Serum Glucose 374 H 74-106 mg/dL Calcium Level 9.3 8.7-10.4 mg/dL Total Bilirubin 0.3 0.2-1.0 mg/dL Aspartate Amino Transferase (AST) 36 13-40 U/L Alanine Aminotransferase (ALT) 25 7-40 U/L Alkaline Phosphatase 108 46-116 U/L Total Protein 6.8 5.7-8.2 g/dL Albumin 4.2 3.2-4.8 g/dL ORDERING PHYSICIAN: YENNY SALEEM DO PROCEDURE(s): HWOCT - HEAD WITHOUT CONTRAST REASON: HEADACHE ORDER NUMBER(s): [id number], ACCESSION NUMBER(s): [id number] COMPUTERIZED TOMOGRAPHY OF THE HEAD WITHOUT CONTRAST REASON FOR STUDY: HEADACHE COMPARISON: None TECHNIQUE: Helical tomographic scans were obtained through the brain. 2-D coronal and sagittal reformatted images are provided. Radiation optimization: All CT scans at this facility use at least one of these dose optimization techniques: Automated exposure control mA and/or kV adjustment per patient size (includes targeted exams where dose is matched to clinical indication) or iterative reconstruction. RADIATION DOSE: CTDI: 62.36 mGy DLP: 1088.52 mGy-cm FINDINGS: No suspicious intracranial hyperdensity to suggest acute blood. There is no mass effect nor midline shift. There is no hydrocephalus. The suprasellar cistern is intact. The calvarium is intact. The visualized mastoid air cells and paranasal sinuses are clear. IMPRESSION: No acute intracranial abnormality. Images Reviewed?: Images reviewed and evaluated by me Time of 1ST Reevaluation: 19:14 Reevaluation 1ST: Unchanged Patient Education/Counseling: Diagnosis, Treatment Family Education/Counseling: No Family Present Medical Screening: No EMC Exist At This Time Comments MDM: patient presented with the above HPI.---headache---workup was initiated. patient was found with the above mentioned diagnosis. the following medications were ordered: please refer to order lists of meds and tests obtained by myself Dr. Saleem. Patient ED course and VS have been stabilized. Patient has been reassessed in the ED and remained in a stable condition. Pertinent incidental findings were discussed with the patient and/or family. Patient/family voices understanding and is agreeable with plan. Patient has been observed in the ED adequate length of time to insure improvement/stability. Escalation of care considered: Consideration of escalation to observation or admission Patient was DISCHARGED home in a stable condition. All the reports of any imaging studies that were ordered by myself were reviewed by myself. Departure 1 Departure Time of Disposition: 18:40 Impression: Primary Impression: Headache Additional Impression: Hyperglycemia Disposition: 01 HOME / SELF CARE / HOMELESS Condition: Stable Additional Instructions: Additional instructions: Please read all instructions provided in this packet carefully. You MUST follow-up with your primary care/family doctor in 1 to 2 days. If you are unable to see your primary care/family doctor, please return to our emergency room for re-assessment and re-evaluation in 1 to 2 days. Return to the emergency room here in our facility or to the nearest ER [facility] if your symptoms change or worsen. CONSULTATIONS: you MUST Follow-up for consultation as soon as possible with: --neurology in 1-2 days. Please call for appointment. You MUST call the consultants office yourself to make an appointment. You may need to arrange that through your insurance and/or your primary/family doctor. If you are unable to see the contamination consultant in 1 to 2 days, you must return to our emergency room (or any other ER of your choice) for re-assessment and re- evaluation. Adequate fluid hydration. Although you have been discharged from the Emergency Department, this does not mean that you have a "clean bill of health". No definitive diagnosis for your symptoms has been made today. It is possible that you are in the process of developing a serious illness. This is why you must return to the ED without fail if any new or worsening symptoms develop. Below is a copy of your radiological report for follow up: [address] [address] Ph: [phone] DIAGNOSTIC IMAGING Diagnostic Imaging Report : [id number] Signed PATIENT: LAINEY CHONG ACCT: [id number] UNIT: [id number] : 1985 LOC: ER ROOM / BED: / AGE / SEX: 40 / F ADM STATUS: REG ER SERVICE 183 ORDERING PHYSICIAN: YENNY SALEEM DO PROCEDURE(s): HWOCT - HEAD WITHOUT CONTRAST REASON: HEADACHE ORDER NUMBER(s): [id number], ACCESSION NUMBER(s): [id number] COMPUTERIZED TOMOGRAPHY OF THE HEAD WITHOUT CONTRAST REASON FOR STUDY: HEADACHE COMPARISON: None TECHNIQUE: Helical tomographic scans were obtained through the brain. 2-D coronal and sagittal reformatted images are provided. Radiation optimization: All CT scans at this facility use at least one of these dose optimization techniques: Automated exposure control mA and/or kV adjustment per patient size (includes targeted exams where dose is matched to clinical indication) or iterative reconstruction. RADIATION DOSE: CTDI: 62.36 mGy DLP: 1088.52 mGy-cm FINDINGS: No suspicious intracranial hyperdensity to suggest acute blood. There is no mass effect nor midline shift. There is no hydrocephalus. The suprasellar cistern is intact. The calvarium is intact. The visualized mastoid air cells and paranasal sinuses are clear. IMPRESSION: No acute intracranial abnormality. ATED BY: ROBERTO ALVARENGA MD DICTATED DATE/TIME: 07/14/251903 SIGNED BY: ROBERTO ALVARENGA MD SIGNED DATE/TIME: 07/14/251903 CC: Discharged With: Self Critical Care Note Critical Care Time?: No I personally scribed for YENNY SALEEM DO ([facility]) on 07/14/25 at 18:38. Electronically submitted by Evelia Chong ([employer]). I personally scribed for YENNY SALEEM DO ([facility]) on 07/14/25 at 19:16. Electronically submitted by Evelia Chong ([employer]). YENNY SALEEM DO Jul 14, 2025 18:38
[2025-07-14 19:06] LABS: Hematocrit 36.0 % (36.0-46.0); Hemoglobin 12.5 g/dL (12.2-16.2); Mean Corpuscular Hemoglobin 30.3 pg (28.0-32.0); Mean Corpuscular Volume 87.1 fL (80.0-100.0); Nucleated Red Blood Cells % 0.0 %
--- NOTE | 2025-07-14 19:07 | DVH ---
COMPUTERIZED TOMOGRAPHY OF THE HEAD WITHOUT CONTRAST REASON FOR STUDY: HEADACHE COMPARISON: None TECHNIQUE: Helical tomographic scans were obtained through the brain. 2-D coronal and sagittal refor matted images are provided. Radiation optimization: All CT scans at this facility use at least one of these dose optimization techniques: Automated exposure control mA and/or kV adjustment per patient s ize (includes targeted exams where dose is matched to clinical indication) or iterative reconstructio n. RADIATION DOSE: CTDI: 62.36 mGy DLP: 1088.52 mGy-cm FINDINGS: No suspicious intracranial hyperdensity to suggest acute blood. There is no mass effect n or midline shift. There is no hydrocephalus. The suprasellar cistern is intact. The calvarium is inta ct. The visualized mastoid air cells and paranasal sinuses are clear. IMPRESSION: No acute intracranial abnormality.
[2025-07-14 19:23] LABS: Alanine Aminotransferase 25 U/L (7-40); Albumin 4.2 g/dL (3.2-4.8); Alkaline Phosphatase 108 U/L (46-116); Anion Gap 9 (5-15); BUN/Creatinine Ratio 16.7 (10.0-20.0); Blood Urea Nitrogen 20 mg/dL (9-23); Calcium 9.3 mg/dL (8.7-10.4); Carbon Dioxide 27 mmol/L (20-31); Chloride 99 mmol/L (98-107); Potassium 4.7 mmol/L (3.5-5.1); Total Protein 6.8 g/dL (5.7-8.2)
[2025-07-14 19:24] LABS: Bilirubin, Total 0.3 mg/dL (0.2-1.0); Glucose 374 mg/dL (74-106); Sodium 135 mmol/L (136-145)
[2025-07-14 19:47] VITALS: BP 147/81; PULSE 99; RESP 14; TEMP 98.1; O2SAT 100
[2025-07-14] MEDS: SODIUM CHLORIDE 0.9% 1,000 ML IV ONE (19:55)
[2025-07-14] MEDS: KETOROLAC TROMETH 30 MG/ML 1ML VIAL IV ONE (19:58)
== END 2025-07-14 20:30 | disposition home or self-care (01) ==
LOC: ER 18:06
DX: G43.909 Migraine, unspecified, not intractable, without status migrainosus (principal); I10 Essential (primary) hypertension; F17.210 Nicotine dependence, cigarettes, uncomplicated; E03.9 Hypothyroidism, unspecified; E11.9 Type 2 diabetes mellitus without complications; E78.5 Hyperlipidemia, unspecified; D64.9 Anemia, unspecified; Z98.890 Other specified postprocedural states; Z98.51 Tubal ligation status
CPT/HCPCS: 36415; 70450; 80053; 82947; 85025; 96361; 96374; 99285; J1885; J7030; 82962